=== PATIENT | male | born 1950 | race Caucasian/White ===

== ENCOUNTER 2019-12-07 10:07 | Outpatient (REF) | payer MEDICARE, SELFPAY ==
[2019-12-07 13:54] LABS: MANUAL DIFF FLAG NO
[2019-12-07 13:56] LABS: Basophils Absolute Auto 0.1 X10*3/uL (0.0-0.2); Basophils Percent Auto 0.5 % (0-2); Eosinophils Absolute Auto 0.2 X10*3/uL (0.0-0.4); Eosinophils Percent Auto 1.8 % (0-4); Hematocrit 48.2 % (42-52); Hemoglobin 15.9 g/dl (14.0-18.0); Imm Gran Abs Auto 0.02 X10*3/uL (0.00-0.03); Imm Gran Pct Auto 0.2 % (0.0-0.4); Lymphocytes Percent Auto 30.3 % (20-40); Mean Corpuscular Hemoglobin 30.5 pg (27.0-33.0); Mean Corpuscular Volume 92.3 fL (80-98); Monocytes Absolute Auto 1.1 X10*3/uL (0.1-1.2); Monocytes Percent Auto 11.4 % (2-11); Neutrophils Absolute Auto 5.5 X10*3/uL (2.0-8.3); Neutrophils Percent Auto 55.8 % (45-73); Platelet Count 290 X10*3/uL (160-400); Red Blood Count 5.22 X10*6/uL (4.60-5.80); Red Cell Distribution Width 13.8 % (11.0-16.0); White Blood Count 9.9 X10*3/uL (4.8-10.8)
[2019-12-07 14:22] LABS: C Reactive Protein 0.67 mg/dL (< or = 0.50)
[2019-12-07 14:46] LABS: Erythrocyte Sedimentation Rate 5 MM/HR (0-15)
== END 2019-12-07 10:08 | disposition home or self-care (01) ==
LOC: HO.WFDLDS 10:07
PROVIDERS: Visit Provider Physician Assistant Surgical
DX: Z13.89 Encounter for screening for other disorder (principal)
CPT/HCPCS: 36415; 85025; 85652; 86140

== ENCOUNTER 2020-03-28 07:10 | Outpatient (REF) | payer MEDICARE, SELFPAY ==
[2020-03-28 10:52] LABS: MANUAL DIFF FLAG NO
[2020-03-28 11:00] LABS: Basophils Percent Auto 0.5 % (0-2); Eosinophils Absolute Auto 0.3 X10*3/uL (0.0-0.4); Eosinophils Percent Auto 3.5 % (0-4); Hematocrit 45.3 % (42-52); Imm Gran Abs Auto 0.02 X10*3/uL (0.00-0.03); Imm Gran Pct Auto 0.2 % (0.0-0.4); Lymphocytes Absolute Auto 2.5 X10*3/uL (1.2-4.9); Lymphocytes Percent Auto 30.4 % (20-40); Mean Corpuscular HGB Conc 33.1 g/dl (31.0-36.0); Mean Corpuscular Hemoglobin 30.4 pg (27.0-33.0); Mean Corpuscular Volume 91.9 fL (80-98); Mean Platelet Volume 10.7 fL (9.4-12.4); Monocytes Absolute Auto 1.1 X10*3/uL (0.1-1.2); Neutrophils Absolute Auto 4.4 X10*3/uL (2.0-8.3); Neutrophils Percent Auto 52.4 % (45-73); Platelet Count 247 X10*3/uL (160-400); Red Blood Count 4.93 X10*6/uL (4.60-5.80); Red Cell Distribution Width 13.9 % (11.0-16.0); White Blood Count 8.3 X10*3/uL (4.8-10.8)
[2020-03-28 11:46] LABS: Alanine Aminotransferase 24 U/L (0-40); Albumin Level 4.1 g/dL (3.5-5.0); Alkaline Phosphatase 64 U/L (39-117); Anion Gap 12 (12-20); Aspartate Amino Transferase 16 U/L (5-37); Bilirubin Total 0.7 mg/dL (0.0-1.0); Blood Urea Nitrogen 14 mg/dL (9-16); Carbon Dioxide 26 mmol/L (22-29); Chloride 105 mmol/L (96-108); Cholesterol 165 mg/dL; Estimated Glomerular Filt Rate > 60; Glucose Fasting 88 mg/dL (60-99); HDL Cholesterol 36 mg/dL; LDL Cholesterol Calculated 94 mg/dl; Potassium 4.5 mmol/L (3.3-5.1); Sodium 138 mmol/L (135-145); Total Protein 7.6 g/dL (6.5-8.0); Triglycerides 178 mg/dL
[2020-03-28 12:11] LABS: Thyroid Stimulating Hormone 2.51 uIU/mL (0.32-4.0)
== END 2020-03-28 07:11 | disposition home or self-care (01) ==
LOC: HO.WFDLDS 07:10
PROVIDERS: PCP Nurse Practitioner Family; Visit Provider Nurse Practitioner Family
DX: Z00.00 Encounter for general adult medical examination without abnormal findings (principal); R53.83 Other fatigue
CPT/HCPCS: 36415; 80053; 80061; 84443; 85025

== ENCOUNTER 2020-04-10 07:43 | Outpatient (REF) | payer MEDICARE, SELFPAY ==
[2020-04-10 12:08] LABS: Thyroid Stimulating Hormone 2.26 uIU/mL (0.32-4.0)
[2020-04-10 12:43] LABS: Folate 16.9 ng/mL (> or = 4.0); Vitamin B12 311 pg/mL (200-900)
[2020-04-11 08:29] LABS: Syphilis Screen Nonreactive (Nonreactive)
== END 2020-04-10 07:44 | disposition home or self-care (01) ==
LOC: HO.WFDLDS 07:43
PROVIDERS: Visit Provider Psychiatry & Neurology Neurology
DX: R41.3 Other amnesia (principal)
CPT/HCPCS: 36415; 82607; 82746; 84443; 86780

== ENCOUNTER 2022-11-12 07:10 | Outpatient (REF) | payer MEDICARE, SELFPAY ==
[2022-11-12 11:33] LABS: Hemoglobin 14.3 g/dl (14.0-18.0); Mean Corpuscular HGB Conc 33.3 g/dl (31.0-36.0); Mean Corpuscular Hemoglobin 31.2 pg (27.0-33.0); Mean Corpuscular Volume 93.7 fL (80.0-98.0); Platelet Count 268 X10*3/uL (160-400); Red Blood Count 4.59 X10*6/uL (4.60-5.80); White Blood Count 8.2 X10*3/uL (4.8-10.8)
[2022-11-12 12:08] LABS: Alanine Aminotransferase 16 U/L (0-40); Albumin Level 4.1 g/dL (3.5-5.0); Alkaline Phosphatase 63 U/L (39-117); Anion Gap 9 (12-20); Aspartate Amino Transferase 14 U/L (5-37); Bilirubin Total 0.5 mg/dL (0.0-1.0); Blood Urea Nitrogen 17 mg/dL (9-16); Calcium 8.7 mg/dL (8.4-10.2); Carbon Dioxide 25 mmol/L (22-29); Chloride 108 mmol/L (96-108); Estimated Glomerular Filt Rate > 60; Glucose Fasting 95 mg/dL (60-99); Potassium 3.8 mmol/L (3.3-5.1); Sodium 138 mmol/L (135-145); Total Protein 7.4 g/dL (6.5-8.0)
== END 2022-11-12 07:11 | disposition home or self-care (01) ==
LOC: HO.WFDLDS 07:10
PROVIDERS: Visit Provider Nurse Practitioner Family
DX: E78.00 Pure hypercholesterolemia, unspecified (principal); Z11.59 Encounter for screening for other viral diseases
CPT/HCPCS: 36415; 80053; 85027

== ENCOUNTER 2023-05-04 08:44 | Outpatient (AMB) | payer MEDICARE, SELFPAY ==
--- NOTE | 2023-05-04 09:04 | MHC.OFFVIS ---
Intake Intake Visit Reasons: incomplete bladder emptying Intake Note: New Patient presents today for a follow up on incomplete bladder emptying Meds- Tamsulosin Allergies to Antibiotic- No Known Allergies Blood Thinner- Aspirin Post Void Residual: 55ml Patient stated he urinate about 7 times in the morning, and he believe is due to the furosemide.He also stated he used to wakes up a night about 3 times to urinate, and after he started taking the Tamsulosin, he wakes up about one time at night. 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 The patient is hearing impaired uses a hearing aid. His Deepa is present. He states that he sees a urologist in [place] when he is there for the wintertime. He has been on tamsulosin for some time. He denies gross hematuria. Denies prior UTI or kidney stones. Evaluation: Bladder scan PVR 55 mL. Prostate exam-mild to moderately enlarged smooth. 05/04/2023--plan: Continue tamsulosin 0.4 mg daily Ultrasound retroperitoneum PSA screening Follow-up in 10 weeks [facility] Medical History Ankle swelling Hx of hyperlipidemia Migraine Hearing difficulty History of osteoarthritis Fusion of fingers of both hands Urinary retention Vertigo Surgical History Hx of colonoscopy History of hip replacement History of knee replacement Family History Father History of emphysema Mother No problems noted. Social History Alcohol intake: current Alcohol intake frequency: holidays/special occasions only Patient Tobacco Use Status: Former Tobacco user Quit Date: 1991 Review of Systems Const All systems reviewed & are unremarkable except as noted in HPI and below Reports no additional complaints Eyes Reports no additional complaints ENT Reports no additional complaints Card Reports no additional complaints Resp Reports no additional complaints GI Reports no additional complaints Reports as per HPI Musc Reports no additional complaints Skin/Breast Reports system reviewed and no additional complaints, except as documented Neuro Reports no additional complaints Psych Reports no additional complaints Endo Reports no additional complaints Rohit/Lymph Reports no additional complaints Aller/Immun Reports no additional complaints Physical Exam Const General: healthy appearing, no acute distress and well developed Orientation/consciousness: patient oriented x3 HEENT Head: Yes normocephalic and Yes atraumatic Eyes Conjunctivae: conjunctivae normal Neck Neck: Yes normal visual inspection Chest Chest palpation & inspection: normal inspection of the chest Resp Effort & Inspection: normal respiratory effort Cardio Rate: regular rate GI Inspection: Yes normal to inspection Palpation (GI): Soft to palpation Other: Prostate Exam: mild to moderately enlarged smooth. Skin General skin exam: no rashes or lesions noted Neuro General: patient oriented x3 Extrem General: No pedal edema Psych Appearance: grossly normal Affect: normal affect Office Procedures Post Void Residual Post Residual Void Post Void Residual (PVR): [id number] Void Residual by ultrasound Results AMB Urinalysis, Automated UA Leukoctes 0 Kelly/uL Last Edit by Rita Johnson CMA on 05/04/23 09:34 UA Nitrite Negative Last Edit by Rita Johnson CMA on 05/04/23 09:34 UA Urobilinogen 0.2 mg/dL Last Edit by Rita Johnson CMA on 05/04/23 09:34 UA Protein 15 mg/dL Last Edit by Rita Johnson CMA on 05/04/23 09:34 UA pH 6.0 Last Edit by Rita Johnson CMA on 05/04/23 09:34 UA Blood 0 Mickey/uL Last Edit by Rita Johnson CMA on 05/04/23 09:34 UA Specific [place] 1.025 Last Edit by Rita Johnson CMA on 05/04/23 09:34 UA Ketone Negative Last Edit by Rita Johnson CMA on 05/04/23 09:34 UA Bilirubin 0 mg/dL Last Edit by Rita Johnson CMA on 05/04/23 09:34 UA Glucose 0 mg/dL Last Edit by Rita Johnson CMA on 05/04/23 09:34 Results Reviewed Results Reviewed: Laboratory Last Values Urine pH (Auto) 6.0 05/04/23 09:33 Specific [place] (Auto) 1.025 05/04/23 09:33 Urine Protein (Auto) 15 mg/dL 05/04/23 09:33 Glucose (UA)(Auto) 0 mg/dL 05/04/23 09:33 Urine Ketones (Auto) Negative 05/04/23 09:33 Urine Blood (Auto) 0 Mickey/uL 05/04/23 09:33 Urine Nitrite (Auto) Negative 05/04/23 09:33 Urine Bilirubin (Auto) 0 mg/dL 05/04/23 09:33 Urine Urobilinogen (Auto) 0.2 mg/dL 05/04/23 09:33 Leukocyte Esterase (Auto) 0 Kelly/uL 05/04/23 09:33 Assessment & Plan Assessment & Plan (1) BPH with obstruction/lower urinary tract symptoms: Code(s): N40.1 - Benign prostatic hyperplasia with lower urinary tract symptoms; N13.8 - Other obstructive and reflux uropathy (2) Nocturia: Code(s): R35.1 - Nocturia Plan Continue tamsulosin 0.4 mg daily Ultrasound retroperitoneum PSA screening Follow-up in 10 weeks Orders: Orders US retroperitoneal comp Today N13.8 - Other obstructive and reflux uropathy, N40.1 - Benign prostatic hyperplasia with lower urinary tract symptoms AMB Urinalysis Automated Today R33.9 - Retention of urine, unspecified AMB Post Void Residual by ultrasound Today R33.9 - Retention of urine, unspecified PSA,Total (Free>4and<10) 5 Weeks N13.8 - Other obstructive and reflux uropathy, N40.1 - Benign prostatic hyperplasia with lower urinary tract symptoms Patient Instructions: The patient had an opportunity to ask questions regarding treatment plan. All questions were answered. Laboratory studies and physical exam results were discussed and reviewed in detail. No major barriers to understanding were identified. The patient expressed understanding and agreement with the above treatment plan. The patient is aware they should contact our office by phone for worsening of their current condition or the appearance of new symptoms. Compliance is encouraged with any medications and followup testing that is ordered. It is a privilege to be allowed the opportunity to participate in the urologic care of your patient. If you have any questions or concerns regarding treatment for the above conditions please do not hesitate to contact me. The office telephone contact is [phone]. This note is constructed in part using voice recognition software. While every effort has been made to ensure accuracy natural gas field processing supervisor errors may have been included. Yours sincerely, Leatha Elaine MD Coding Level of Care Code New Pt Level 4 (26189) Diagnoses BPH with obstruction/lower urinary tract symptoms N40.1; N13.8 Nocturia R35.1 CPT Codes Post Residual Void - PVR CPT Code: 76477-Accv Void Residual by ultrasound ([id number])
== END 2023-05-04 10:00 | disposition home or self-care (01) ==
PROVIDERS: PCP Nurse Practitioner Family; Visit Provider Urology
DX: N40.1 Benign prostatic hyperplasia with lower urinary tract symptoms (principal); N13.8 Other obstructive and reflux uropathy; R35.1 Nocturia; R33.9 Retention of urine, unspecified
CPT/HCPCS: 99204

== ENCOUNTER → 2023-05-04 08:44 | Outpatient (BNVA) | payer MEDICARE, SELFPAY | PROVIDERS: PCP Nurse Practitioner Family; Visit Provider Urology | DX: N40.1 Benign prostatic hyperplasia with lower urinary tract symptoms (principal); N13.8 Other obstructive and reflux uropathy; R35.1 Nocturia | CPT/HCPCS: 51798; 81003; 99202 ==

== ENCOUNTER 2023-07-09 10:16 | Outpatient (REF) | payer MEDICARE, SELFPAY ==
--- NOTE | ~2023-07-09 | US_ITS ---
EXAMINATION: US RETROPERITONEAL COMPLETE (RENAL) CLINICAL INFORMATION: Benign prostatic hyperplasia with lower urinary tract symptoms. COMPARISON: None available. TECHNIQUE: Real-time imaging of the kidneys and bladder. FINDINGS: RIGHT KIDNEY: 11.4 x 5.4 x 6.4 cm (SAG x AP x TRV). The kidney is normal in size, contour, and echogenicity. Renal cortical thickness is normal. No calculi or focal parenchymal lesions. No hydronephrosis. LEFT KIDNEY: 12.9 x 5.8 x 5.8 cm (SAG x AP x TRV). The kidney is normal in size, contour, and echogenicity. Renal cortical thickness is normal. No calculi or focal parenchymal lesions. No hydronephrosis. BLADDER: Well distended. Bilateral ureteral jets are demonstrated. Prevoid bladder volume is 195 mL. Postvoid bladder volume is 62 mL. ADDITIONAL FINDINGS: The prostate is enlarged measuring 38 mL. US/US retroperitoneal comp IMPRESSION: Enlarged prostate. Post void bladder residual 62 mL. No hydronephrosis.
[2023-07-09 12:31] LABS: PSA,Total (Free>4and<10) 4.94 ng/mL (0.00-4.00)
[2023-07-11 11:28] LABS: Free Prostate Spec Ag 0.5 ng/mL; Percent Free Prostate Spec Ag 11 % (calc) (>25); Prostate Specific Ag Total 4.4 ng/mL (< OR = 4.0)
== END 2023-07-09 10:17 | disposition home or self-care (01) ==
LOC: HO.US 10:16
PROVIDERS: PCP Internal Medicine; Visit Provider Urology
DX: Z12.5 Encounter for screening for malignant neoplasm of prostate (principal); N40.1 Benign prostatic hyperplasia with lower urinary tract symptoms; N13.8 Other obstructive and reflux uropathy
CPT/HCPCS: 36415; 76770; 84153; 84154

== ENCOUNTER 2023-07-13 10:44 | Outpatient (AMB) | payer MEDICARE, SELFPAY ==
--- NOTE | 2023-07-13 10:50 | A.OFFVIS_ITS ---
Intake Visit Reasons: 2m/US/PSA Intake Note: Patient presents today for a follow up on US & PSA Results: Meds- Tamsulosin Allergies to Antibiotic- No Known Allergies Blood Thinner- Aspirin Commercial Production Editor Required: No Accompanied by: Allergies No Known Allergies Allergy (Mild, Verified 07/13/23 10:55) N/A Medication List - Last Reconciled 07/13/23 by Leatha Elaine MD amoxicillin 500 mg PO TID aspirin 81 mg PO DAILY finasteride (Proscar) 5 mg PO DAILY 90 days furosemide 20 mg PO DAILY gemfibrozil 600 mg PO BID tamsulosin 0.4 mg PO DAILY topiramate 50 mg PO BID topiramate XR mg PO HPI Comments Details: 07/13/23--Arnold is a 73-year-old male who is hearing impaired. He is followed for BPH. He is on tamsulosin 0.4 mg daily. He is here in follow-up post renal and bladder ultrasound and PSA testing. I reviewed PSA testing obtained on 07/09/2023--PSA--4.94 ng/mL. Renal ultrasound preliminary results reviewed with patient: Official design engineer pending. Bilateral kidneys unremarkable, prostate volume estimated 38 mL. Bladder prevoid 195 mL, postvoid 62 mL. Continue tamsulosin. Discussed trial of Proscar 5 mg daily. Repeat PSA in 4 months. Revew of chart: 05/04/23--Arnold is a 73-year-old male who is here due to history of BPH. The patient is hearing impaired uses a hearing aid. His Deepa is present. He states that he sees a urologist in [place] when he is there for the wintertime. He has been on tamsulosin for some time. He denies gross hematuria. Denies prior UTI or kidney stones. Evaluation: Bladder scan PVR 55 mL. Prostate exam-mild to moderately enlarged smooth. Continue tamsulosin 0.4 mg daily Ultrasound retroperitoneum. PSA screening. Follow-up in 10 weeks [facility] Medical History Ankle swelling Hx of hyperlipidemia Migraine Hearing difficulty History of osteoarthritis Fusion of fingers of both hands Urinary retention Vertigo Surgical History Hx of colonoscopy History of hip replacement History of knee replacement Family History Father History of emphysema Mother No problems noted. Social History Alcohol intake: current Alcohol intake frequency: holidays/special occasions only Patient Tobacco Use Status: Former Tobacco user Review of Systems Const All systems reviewed & are unremarkable except as noted in HPI and below Reports no additional complaints Eyes Reports no additional complaints ENT Reports no additional complaints Card Reports no additional complaints Resp Reports no additional complaints GI Reports no additional complaints Reports as per HPI Musc Reports no additional complaints Skin/Breast Reports system reviewed and no additional complaints, except as documented Neuro Reports no additional complaints Psych Reports no additional complaints Endo Reports no additional complaints Rohit/Lymph Reports no additional complaints Aller/Immun Reports no additional complaints Results AMB Urinalysis, Automated UA Leukoctes 0 Kelly/uL Last Edit by KATHLEEN Harrison on 07/13/23 11:05 UA Nitrite Negative Last Edit by KATHLEEN Harrison on 07/13/23 11:05 UA Urobilinogen 0.2 mg/dL Last Edit by KATHLEEN Harrison on 07/13/23 11:0 5 UA Protein 0 mg/dL Last Edit by KATHLEEN Harrison on 07/13/23 11:05 UA pH 6.0 Last Edit by KATHLEEN Harrison on 07/13/23 11:05 UA Blood 0 Mickey/uL Last Edit by KATHLEEN Harrison on 07/13/23 11:05 UA Specific [place] 1.020 Last Edit by KATHLEEN Harrison on 07/13/23 11: 05 UA Ketone Negative Last Edit by KATHLEEN Harrison on 07/13/23 11:05 UA Bilirubin 0 mg/dL Last Edit by KATHLEEN Harrison on 07/13/23 11:05 UA Glucose 0 mg/dL Last Edit by KATHLEEN Harrison on 07/13/23 11:05 Results Reviewed Results Reviewed: Laboratory Last Values Urine pH (Auto) 6.0 07/13/23 11:01 Specific [place] (Auto) 1.020 07/13/23 11:01 Urine Protein (Auto) 0 mg/dL 07/13/23 11:01 Glucose (UA)(Auto) 0 mg/dL 07/13/23 11:01 Urine Ketones (Auto) Negative 07/13/23 11:01 Urine Blood (Auto) 0 Mickey/uL 07/13/23 11:01 Urine Nitrite (Auto) Negative 07/13/23 11:01 Urine Bilirubin (Auto) 0 mg/dL 07/13/23 11:01 Urine Urobilinogen (Auto) 0.2 mg/dL 07/13/23 11:01 Leukocyte Esterase (Auto) 0 Kelly/uL 07/13/23 11:01 Ultrasound retroperitoneum-07/09/2023--Renal ultrasound preliminary results reviewed with patient: Official design engineer pending. Bilateral kidneys unremarkable, prostate volume estimated 38 mL. Bladder prevoid 195 mL, postvoid 62 mL Assessment & Plan Assessment & Plan (1) BPH with obstruction/lower urinary tract symptoms: Code(s): N40.1 - Benign prostatic hyperplasia with lower urinary tract symptoms; N13.8 - Other obstructive and reflux uropathy Category: Medical (2) Nocturia: Code(s): R35.1 - Nocturia Category: Medical (3) BPH with elevated PSA: Code(s): N40.0 - Benign prostatic hyperplasia without lower urinary tract symptoms; R97.20 - Elevated prostate specific antigen [PSA] Category: Medical Plan Continue tamsulosin. Discussed trial of Proscar 5 mg daily. Repeat PSA in 4 months. Orders: Orders AMB Urinalysis Automated Today Z13.9 - Encounter for screening, unspecified PSA,Total (Free>4and<10) 4 Months N40.0 - Benign prostatic hyperplasia without lower urinary tract symptoms, R97.20 - Elevated prostate specific antigen [PSA] Medications: New finasteride (Proscar) 5 mg PO DAILY 90 days 90 tabs 3RF Patient Instructions: The patient had an opportunity to ask questions regarding treatment plan. The patient expressed understanding and agreement with the above treatment plan. The patient is aware they should contact our office by phone for worsening of their current condition or the appearance of new symptoms. Compliance is encouraged with any medications and followup testing that is ordered. It is a privilege to be allowed the opportunity to participate in the urologic care of your patient. If you have any questions or concerns regarding treatment for the above conditions please do not hesitate to contact me. The office telephone contact is [phone]. This note is constructed in part using voice recognition software. While every effort has been made to ensure accuracy design engineer errors may have been included. Yours sincerely, Leatha Elaine MD Coding Level of Care Code Est Pt Level 4 (47787) Diagnoses BPH with obstruction/lower urinary tract symptoms N40.1; N13.8 Nocturia R35.1 BPH with elevated PSA N40.0; R97.20
== END 2023-07-13 11:24 | disposition home or self-care (01) ==
PROVIDERS: PCP Nurse Practitioner Family; Visit Provider Urology
DX: N40.1 Benign prostatic hyperplasia with lower urinary tract symptoms (principal); N13.8 Other obstructive and reflux uropathy; R35.1 Nocturia; N40.0 Benign prostatic hyperplasia without lower urinary tract symptoms; R97.20 Elevated prostate specific antigen [PSA]; Z13.9 Encounter for screening, unspecified
CPT/HCPCS: 99214

== ENCOUNTER → 2023-07-13 10:44 | Outpatient (BNVA) | payer MEDICARE, SELFPAY | PROVIDERS: PCP Nurse Practitioner Family; Visit Provider Urology | DX: N40.1 Benign prostatic hyperplasia with lower urinary tract symptoms (principal); N13.8 Other obstructive and reflux uropathy; R35.1 Nocturia; R97.20 Elevated prostate specific antigen [PSA]; Z79.82 Long term (current) use of aspirin; Z79.899 Other long term (current) drug therapy | CPT/HCPCS: 81003; 99212 ==

== ENCOUNTER 2023-11-25 08:01 | Outpatient (REF) | payer MEDICARE, SELFPAY ==
[2023-11-25 12:25] LABS: PSA,Total (Free>4and<10) 2.56 ng/mL (0.00-4.00)
== END 2023-11-25 08:02 | disposition home or self-care (01) ==
LOC: HO.WFDLDS 08:01
PROVIDERS: Visit Provider Urology
DX: N40.0 Benign prostatic hyperplasia without lower urinary tract symptoms (principal); R97.20 Elevated prostate specific antigen [PSA]; Z12.5 Encounter for screening for malignant neoplasm of prostate
CPT/HCPCS: 36415; 84153

== ENCOUNTER 2023-12-17 07:57 | Outpatient (AMB) | payer MEDICARE, SELFPAY ==
--- NOTE | 2023-12-16 18:40 | A.OFFVIS_ITS ---
Intake Visit Reasons: 5m/PSA Intake Note: Patient is present for 5mPSA Urology Medication:FINASTERIDE,TAMSULOSIN,FUROSEMIDE Antibiotic Allergy:NONE Blood Thinner:ASPIRIN Underground Truck Operator Required: No Allergies No Known Allergies Allergy (Mild, Verified 12/17/23 08:27) N/A Medication List - Last Reconciled 12/17/23 by Leatha Elaine MD aspirin 81 mg PO DAILY finasteride (Proscar) 5 mg PO DAILY 90 days furosemide 20 mg PO DAILY gemfibrozil 600 mg PO BID tamsulosin 0.4 mg PO DAILY topiramate XR mg PO HPI Comments Details: 12/17/23-- Arnold is a 73-year-old gentleman who is followed for BPH and elevated PSA. Follow-up today. The patient is prescribed Proscar and tamsulosin. FU PSA----11/25/23--2.56 Urinalysis is unremarkable blood negative leukocytes negative. Gilmer states he is getting up less at night and has a stronger urinary flow. Plan continue Proscar and tamsulosin, follow-up in 1 year PSA prior. Revew of chart: 07/13/23--Arnold is a 73-year-old male who is hearing impaired. He is followed for BPH. He is on tamsulosin 0.4 mg daily. He is here in follow-up post renal and bladder ultrasound and PSA testing. I reviewed PSA testing obtained on 07/09/2023--PSA--4.94 ng/mL. 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 Bilateral kidneys unremarkable, prostate volume estimated 38 mL. Bladder prevoid 195 mL, postvoid 62 mL. Continue tamsulosin. Discussed trial of Proscar 5 mg daily. Repeat PSA in 4 months. 05/04/23--Arnold is a 73-year-old male who is here due to history of BPH. The patient is hearing impaired uses a hearing aid. His Deepa is present. He states that he sees a urologist in [place] when he is there for the wintertime. He has been on tamsulosin for some time. He denies gross hematuria. Denies prior UTI or kidney stones. Evaluation: Bladder scan PVR 55 mL. Prostate exam-mild to moderately enlarged smooth. Continue tamsulosin 0.4 mg daily Ultrasound retroperitoneum. PSA screening. Follow-up in 10 weeks [facility] Medical History Ankle swelling Hx of hyperlipidemia Migraine Hearing difficulty History of osteoarthritis Fusion of fingers of both hands Urinary retention Vertigo Surgical History Hx of colonoscopy History of hip replacement History of knee replacement Family History Father History of emphysema Mother No problems noted. Social History Alcohol intake: current Alcohol intake frequency: holidays/special occasions only Patient Tobacco Use Status: Former Tobacco user Review of Systems Const All systems reviewed & are unremarkable except as noted in HPI and below Reports no additional complaints Eyes Reports no additional complaints ENT Reports no additional complaints Card Reports no additional complaints Resp Reports no additional complaints GI Reports no additional complaints Reports as per HPI Musc Reports no additional complaints Skin/Breast Reports system reviewed and no additional complaints, except as documented Neuro Reports no additional complaints Psych Reports no additional complaints Endo Reports no additional complaints Rohit/Lymph Reports no additional complaints Aller/Immun Reports no additional complaints Results AMB Urinalysis, Automated UA Leukoctes 0 Kelly/uL Last Edit by MARIBEL Lawrence on 12/17/23 08:50 UA Nitrite Negative Last Edit by MARIBEL Lawrence on 12/17/23 08:50 UA Urobilinogen 0.2 mg/dL Last Edit by MARIBEL Lawrence on 12/17/23 08:5 0 UA Protein 15 mg/dL Last Edit by Jesika Sanders CCM on 12/17/23 08:50 UA pH 6.0 Last Edit by MARIBEL Lawrence on 12/17/23 08:50 UA Blood 0 Mickey/uL Last Edit by MARIBEL Lawrence on 12/17/23 08:50 UA Specific [place] 1.020 Last Edit by MARIBEL Lawrence on 12/17/23 08: 50 UA Ketone Negative Last Edit by Jesika Sanders CCM on 12/17/23 08:50 UA Bilirubin 0 mg/dL Last Edit by MARIBEL Lawrence on 12/17/23 08:50 UA Glucose 0 mg/dL Last Edit by MARIBEL Lawrence on 12/17/23 08:50 Results Reviewed Results Reviewed: Ultrasound retroperitoneum-07/09/2023-- Renal ultrasound --Bilateral kidneys unremarkable, prostate volume estimated 38 mL. Bladder prevoid 195 mL, postvoid 62 mL Date of Service: 07/09/23 US RETROPERITONEAL COMPLETE (RENAL) CLINICAL INFORMATION: Benign prostatic hyperplasia with lower urinary tract symptoms. COMPARISON: None available. TECHNIQUE: Real-time imaging of the kidneys and bladder. FINDINGS: RIGHT KIDNEY: 11.4 x 5.4 x 6.4 cm (SAG x AP x TRV). The kidney is normal in size, contour, and echogenicity. Renal cortical thickness is normal. No calculi or focal parenchymal lesions. No hydronephrosis. LEFT KIDNEY: 12.9 x 5.8 x 5.8 cm (SAG x AP x TRV). The kidney is normal in size, contour, and echogenicity. Renal cortical thickness is normal. No calculi or focal parenchymal lesions. No hydronephrosis. BLADDER: Well distended. Bilateral ureteral jets are demonstrated. Prevoid bladder volume is 195 mL. Postvoid bladder volume is 62 mL. ADDITIONAL FINDINGS: The prostate is enlarged measuring 38 mL. IMPRESSION: Enlarged prostate. Post void bladder residual 62 mL. No hydronephrosis. Assessment & Plan Assessment & Plan (1) BPH with obstruction/lower urinary tract symptoms: Code(s): N40.1 - Benign prostatic hyperplasia with lower urinary tract symptoms; N13.8 - Other obstructive and reflux uropathy Category: Medical (2) Nocturia: Code(s): R35.1 - Nocturia Category: Medical (3) BPH with elevated PSA: Code(s): N40.0 - Benign prostatic hyperplasia without lower urinary tract symptoms; R97.20 - Elevated prostate specific antigen [PSA] Category: Medical Plan FU PSA----11/25/23--2.56 Urinalysis is unremarkable blood negative leukocytes negative. Scherer states he is getting up less at night and has a stronger urinary flow. Plan continue Proscar and tamsulosin, follow-up in 1 year PSA prior. Orders: Orders PSA,Total (Free>4and<10) 10 Months N40.0 - Benign prostatic hyperplasia without lower urinary tract symptoms, R97.20 - Elevated prostate specific antigen [PSA] AMB Urinalysis Automated Today Z13.9 - Encounter for screening, unspecified Medications: New tamsulosin 0.4 mg PO DAILY 90 caps 3RF Refilled finasteride (Proscar) 5 mg PO DAILY 90 days 90 tabs 3RF Patient Instructions: The patient had an opportunity to ask questions regarding treatment plan. The patient expressed understanding and agreement with the above treatment plan. The patient is aware they should contact our office by phone for worsening of their current condition or the appearance of new symptoms. Compliance is enco uraged with any medications and followup testing that is ordered. It is a privilege to be allowed the opportunity to participate in the urologic care of your patient. If you have any questions or concerns regarding treatment for the above conditions please do not hesitate to contact me. The office telephone contact is [phone]. This note is constructed in part using voice recognition software. While every effort has been made to ensure accuracy automotive diagnostic technician errors may have been included. Yours sincerely, Letaha Elaine MD Coding Level of Care Code Est Pt Level 4 (22784) Diagnoses BPH with obstruction/lower urinary tract symptoms N40.1; N13.8 Nocturia R35.1 BPH with elevated PSA N40.0; R97.20
== END 2023-12-17 08:55 | disposition home or self-care (01) ==
LOC: HO.HUSH 07:58
PROVIDERS: PCP Nurse Practitioner Family; Visit Provider Urology
DX: N40.1 Benign prostatic hyperplasia with lower urinary tract symptoms (principal); N13.8 Other obstructive and reflux uropathy; R35.1 Nocturia; N40.0 Benign prostatic hyperplasia without lower urinary tract symptoms; R97.20 Elevated prostate specific antigen [PSA]; Z13.9 Encounter for screening, unspecified
CPT/HCPCS: 99214

== ENCOUNTER → 2023-12-17 07:57 | Outpatient (BNVA) | payer MEDICARE, SELFPAY | PROVIDERS: PCP Nurse Practitioner Family; Visit Provider Urology | DX: N40.1 Benign prostatic hyperplasia with lower urinary tract symptoms (principal); N13.8 Other obstructive and reflux uropathy; R97.20 Elevated prostate specific antigen [PSA]; R35.1 Nocturia | CPT/HCPCS: 81003; 99212 ==

== ENCOUNTER 2024-12-06 10:26 | Outpatient (REF) | payer MEDICARE, SELFPAY ==
--- OUTSIDE RECORDS SUMMARY | 2024-12-06 12:54 | XMS_ITS | Patient Health Record ---
Author Organization [facility] Address [address] [place] [address] Care Team Providers Care Circuit Manager Name Role Phone KALEIGH HOWARD APRN Primary Care Provider Ivy MARCIAL Russell Unavailable [phone] Allergies No Known Allergies Reason For Referral No Information Medications Medication SIG (Take, Route, Frequency, Duration) Notes Start Date End Date Status Aspirin 81 MG Tablet Chewable 1 tablet Orally Once a day; Duration: 30 day(s) Active Tamsulosin HCl 0.4 MG Capsule Extended Release as directed Orally Active Topiramate 50 MG Tablet 1 tablet Orally Once a day; Duration: 30 day(s) Active Gemfibrozil 600 MG Tablet 1 tablet 30 mi nutes before morning and evening meals Orally Twice a day; Duration: 30 day(s) Active Vitamin D2 10 MCG (400 UNIT) Tablet 2 tablets Orally Once a day; Duration: 30 day(s) Active Social History Tobacco Use: Social History Observation Description Date Details (start date - stop date) Never Smoker NA - NA Social History Social History Social Info Question Answer Notes Alcohol Screening: Did you have a drink containing alcohol in the past year? Yes How often did you have a drink containing alcohol in the past year? Two to three times per week (3 points) How many drinks did you have on a typical day when you were drinking in the past year? 1 or 2 (0 points) How often did you have six or more drinks on one occasion in the past year? Never (0 points) Points 3 Interpretation Negative Drug/Alcohol: Social Info Question Answer Notes Alcohol moderate alcohol usage Tobacco Use: Social Info Question Answer Notes Smoking Are you a: never smoker Problems Problem Type SNOMED Code ICD Code Onset Dates Problem Status W/U Status Risk Notes Problem Sensorineural hearing loss of bilateral ears (disorder) (932696983) Sensorineural hearing loss, bilateral (H90.3) Active confirmed Problem Dizziness and giddiness (985174251) Dizziness and giddiness (R42) Active confirmed Problem Vertigo of central origin (98020533) Vertigo of central origin (H81.4) Active confirmed Plan Of Treatment No Information Insurance Providers Payer Name Payer Address Payer Phone Subscriber Number Group Number Insured Name Patient Relationship to Insured Coverage Start Date Coverage End Date MEDICARE [place] PART [place] [address] [place] [phone] [id number] ROBINA VILLALBA Self - patient is the insured [place] [address] [place] [address] [id number] ROBINA VILLALBA Self - patient is the insured Medical (General) History Medical History History ICD Code none Surgical History Surgery Date(Month/Year) back surgery hip surgery knee replacement shoulder surgery hand surgery
--- OUTSIDE RECORDS SUMMARY | 2024-12-06 12:54 | XMS_ITS | Patient Health Record ---
Author Organization [facility] Address [address] [facility] [address] [place] [address] Care Team Providers Care Airset Molder Name Role Phone Batool Martin Primary Care Provider [phone] Allergies No Known Allergies Reason For Referral No Information Medications Medication SIG (Take, Route, Frequency, Duration) Notes Start Date End Date Status Vitamin D (Ergocalciferol) 1.25 MG (67821 UT) 1 capsule Orally once weekly; Duration: 90 days Active Meclizine HCl 25 MG 1 tablet as needed Orally bid prn; Duration: 90 days Active Gemfibrozil 600 MG 1 tablet 30 minutes before morning and evening meals Orally Twice a day; Duration: 90 days Active Aspirin Adult Low Dose 81 MG 1 tablet Orally Once a day Active Tamsulosin HCl 0.4 MG 1 capsule Orally Once a day; Duration: 90 days *Pick strength-form from [employer] for eRX* Active Topiramate 50 MG 1 tablet Orally Twice a day Active Problems Problem Type SNOMED Code ICD Code Onset Dates Problem Status W/U Status Risk Notes Problem Vitamin D deficiency (03609465) Vitamin D deficiency (E55.9) Active confirmed Problem Chronic fatigue syndrome (00360640) Chronic fatigue (R53.82) Active confirmed Problem Former smoker (9976351) Former smoker (Z87.891) Active confirmed Problem Urinary tract infectious disease (86460517) UTI (urinary tract infection) (N39.0) Active confirmed Problem Enlarged prostate (968555403) Enlarged prostate (N40.0) Active confirmed Problem Mixed hyperlipidemia (055571266) Elevated cholesterol with high triglycerides (E78.2) Active confirmed Problem 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) Active confirmed Problem Right-sided vestibular weakness (H81.8X1) Active confirmed Plan Of Treatment No Information Insurance Providers Payer Name Payer Address Payer Phone Subscriber Number Group Number Insured Name Patient Relationship to Insured Coverage Start Date Coverage End Date MEDICARE [address] [place] [phone] [id number] Arnold Villalba Self - patient is the insured 5 Medical (General) History Medical History History ICD Code Vitamin D deficiency E55.9 Enlarged prostate N40.0 Elevated HDL E78.89 Surgical History Surgery Date(Month/Year) 6 back surgeries [id number] hand fusion right side 02-09-2018 Right total knee & hip replacement Torn rotator cuff right 2008 and left gallbladder 02-09-1991 Groin / Abd hernia repair 02-09-2001 Hospitalization History Reason Date(Month/Year) please see above
--- OUTSIDE RECORDS SUMMARY | 2024-12-06 12:54 | XMS_ITS | Patient Health Record ---
Author Organization [facility] Address [address] [place] [address] Care Team Providers Care Fence Rider Name Role Phone Jeanette Shetty Primary Care Provider Arnold Cardozo Unavailable [phone] Reason For Referral No Information Plan Of Treatment No Information Insurance Providers Payer Name Payer Address Payer Phone Subscriber Number Group Number Insured Name Patient Relationship to Insured Coverage Start Date Coverage End Date [facility] [address] [facility] [phone] [id number] ARNOLD VILLALBA Self - patient is the insured
--- OUTSIDE RECORDS SUMMARY | 2024-12-06 12:54 | XMS_ITS | Clinical Summary ---
Author Organization [address] Address [address] [place] [phone] Phone Care Team Providers Care Fund Director Name Role Phone RoroJorge solis DO Primary Care Provider Encounters Date Type Department Care Team Description 11/08/2024 1:12 PM EDT - 11/08/2024 11:59 PM EDT Hospital Encounter [facility] MRI [address] [place] [id number] Migraine, unspecified, not intractable, without status migrainosus Discharge Disposition: Home or Self Care from Last 3 Months Surgical History Surgery Date Site/Laterality Comments BACK SURGERY PROCEDURE:BACK SURGERY;COMMENT:x6 ROTATOR CUFF REPAIR Right PROCEDURE:ROTATOR CUFF REPAIR HAND FUSION Right PROCEDURE:HAND FUSION CARPAL TUNNEL RELEASE Right PROCEDURE:CARPAL TUNNEL RELEASE GALLBLADDER SURGERY PROCEDURE:GALLBLADDER SURGERY HERNIA REPAIR PROCEDURE:HERNIA REPAIR BACK SURGERY PROCEDURE:BACK SURGERY;COMMENT:x6 Medical History Medical History Date Comments Excessive urination at night DX: Excessive urination at night History of right hip replacement DX:History of right hip replacement Vitamin D deficiency DX:Vitamin D deficiency;COMMENT:09/2018 Family History Medical History Relation Name Comments COPD Father Relation Name Status Comments Brother Alive Daughter Alive Father Maternal Grandfather Maternal Grandmother Mother Paternal Grandfather Paternal Grandmother Sister 1 Alive Sister 2 Alive Sister 3 Alive Social History Tobacco Use Types Packs/Day Years Used Date Smoking Tobacco: Former Smokeless Tobacco: Never Alcohol Use Standard Drinks/Week Comments No 0 (1 standard drink = 0.6 oz pur e alcohol) Sex and Gender Information Value Date Recorded Sex Assigned at Not on file Legal Sex Male 1:41 PM EST Gender Identity Not on file Sexual Orientation Not on file Obstetrics History Last Filed Vital Signs Vital Sign Reading Time Taken Comments Blood Pressure 124/76 11/17/2022 9:08 AM EDT Sitting Left arm Pulse 79 09/08/2022 10:05 AM EDT Temperature - - Respiratory Rate - - Oxygen Saturation - - Inhaled Oxygen Concentration - - Weight 89.8 kg (198 lb) 11/17/2022 9:08 AM EDT Height 177.8 cm (5' 10 ) 11/17/2022 9:0 8 AM EDT Body Mass Index 28.41 11/17/2022 9:08 AM EDT Plan of Treatment Health Maintenance Due Date Last Done Comments Colorectal Cancer Screening: Colonoscopy 1950 DTaP,Tdap,and Td Vaccines (1 - Tdap) 02/13/1968 Zoster Vaccines (1 of 2) 1999 Abdominal Aortic Aneurysm (AAA) Screen 01/07/2022 Falls Risk Assessment 01/07/2022 Hepatitis C Screening 01/07/2022 Medicare Annual Wellness Visit 01/07/2022 Social Influencers of Health Screening 01/07/2022 Depression Screening 02/10/2024 RSV Immunization Adult Patients (1 - 1-dose 75+ series) 02/13/2024 COVID-19 Vaccine ( - 2023-2 5 season) 2024 Influenza Vaccine (#1) 2024 11/17/2022 Cholesterol Screening (Lipid Panel) 10/19/2029 10/19/2024, 05/05/2024 Pneumococcal Vaccine: 50+ Years Completed 11/17/2022, 11/02/2018 HIB Vaccines Aged Out No longer eligi ble based on patient's age to complete this topic HPV Vaccines Aged Out No longer eligi ble based on patient's age to complete this topic Hepatitis A Vaccines Aged Out No long er eligible based on patient's age to complete this topic Hepatitis B Vaccines Aged Out No long er eligible based on patient's age to complete this topic IPV Vaccines Aged Out No longer eligi ble based on patient's age to complete this topic MMR Vaccines Aged Out No longer eligi ble based on patient's age to complete this topic Meningococcal ACWY Vaccine Aged Out N o longer eligible based on patient's age to complete this topic Meningococcal B Vaccine Aged Out No l onger eligible based on patient's age to complete this topic RSV Immunization Patients Under 20 months Aged Out No longer eligible b ased on patient's age to complete this topic Varicella Vaccines Aged Out No longer eligible based on patient's age to complete this topic Procedures Procedure Name Priority Date/Time Associated Diagnosis Comments MR BRAIN WO AND W CONTRAST Routine 11/08/2024 4:09 PM EDT Migraine, unspecified, not intractable, without status migrainosus CBC WITH AUTO DIFFERENTIAL Routine 10/19/2024 7:53 AM EDT Routine general medical examination at a health care facility Hyperlipemia Benign enlargement of prostate HEMOGLOBIN A1C Routine 10/19/2024 7:53 AM EDT Routine general medical examination at a health care facility Hyperlipemia Benign enlargement of prostate Abnormal finding of blood chemistry, unspecified PROSTATE SPECIFIC ANTIGEN SCREEN Routine 10/19/2024 7:53 AM EDT Routine general medical examination at a [facility] facility Hyperlipemia Benign enlargement of prostate Encounter for screening for malignant neoplasm of prostate THYROID STIMULATING HORMONE Routine 10/19/2024 7:53 AM EDT Routine general medical examination at a [facility] care facility Hyperlipemia Benign enlargement of prostate CBC AND DIFFERENTIAL Routine 10/19/2024 7:53 AM EDT Routine general medical examination at a health care facility Hyperlipemia Benign enlargement of prostate BASIC METABOLIC PANEL Routine 10/19/2024 7:53 AM EDT Routine general medical examination at a [facility] care facility Hyperlipemia Benign enlargement of prostate CREATINE KINASE Routine 10/19/2024 7:53 AM EDT Routine general medical examination at a health care facility Hyperlipemia Benign enlargement of prostate ASPARTATE AMINOTRANSFERASE Routine 10/19/2024 7:53 AM EDT Routine general medical examination at a health care facility Hyperlipemia Benign enlargement of prostate ALANINE AMINOTRANSFERASE Routine 025 7:53 AM EDT Routine general medical examination at a health care facility Hyperlipemia Benign enlargement of prostate LIPID PANEL WITH REFLEX TO DIRECT LDL Routine 10/19/2024 7:53 AM EDT Routine general medical examination at a [facility] facility Hyperlipemia Benign enlargement of prostate from Last 3 Months Results * MR Brain wo and w Contrast (11/08/2024 4:09 PM EDT) Anatomical Region Laterality Modality Head and Neck Magnetic Resonan ce 11/10/2024 8:17 PM EDT Impressions 11/10/2024 8:43 PM EDT Normal brain MRI without and with contrast. -------- FINAL REPORT -------- Dictated By: SHARONDA BECK Dictated Date: 11/10/2024 20:17 ET Assigned Physician: SHARONDA BECK Reviewed and Electronically Signed By: SHARONDA BECK Signed Date: 11/10/2024 20:43 ET Workstation ID: [id number] Transcribed By: Self Edit Transcribed Date: 11/10/2024 20:17 ET Narrative 11/10/2024 8:43 PM EDT PROCEDURE: Brain MRI INDICATION: Pain, vertigo, dizziness TECHNIQUE: Multiplanar, multisequence MRI of the brain without and with contrast. 15 mL Dotarem injected intravenously without complication. COMPARISON: 07/01/2018 FINDINGS: No acute infarct, mass effect, or intracranial hemorrhage. Brain parenchyma is normal in signal. No abnormal intracranial susceptibility artifact or enhancement. Sella and foramen magnum are normal. Major intracranial arterial flow voids are normal. Ventricles, sulci, and cisterns are normal in size and configuration. No hydrocephalus. Sinuses and mastoid air cells are clear. Bilateral lens implants. Orbits and extra cranial soft tissues are otherwise within normal limits. Calvarium is normal. Procedure Note Sharonda Beck MD - 11/10/2024 PROCEDURE: Brain MRI INDICATION: Pain, vertigo, dizziness TECHNIQUE: Multiplanar, multisequence MRI of the brain without and withcontrast. 15 mL Dotarem injected intravenously without complication. COMPARISON: 07/01/2018 FINDINGS: No acute infarct, mass effect, or intracranial hemorrhage. Brain parenchyma is normal in signal. No abnormal intracranialsusceptibility artifact or enhancement. Sella and foramen magnum are normal. Major intracranial arterial flow voids are normal. Ventricles, sulci, and cisterns are normal in size and configuration. Nohydrocephalus. Sinuses and mastoid air cells are clear. Bilateral lens implants. Orbits and extra cranial soft tissues areotherwise within normal limits. Calvarium is normal. IMPRESSION: Normal brain MRI without and with contrast. -------- FINAL REPORT -------- Dictated By: SHARONDA BECK Dictated Date: 11/10/2024 20:17 ET Assigned Physician: SHARONDA BECK Reviewed and Electronically Signed By: SHARONDA BECK Signed Date: 11/10/2024 20:43 ET Workstation ID: [id number] Transcribed By: Self Edit Transcribed Date: 11/10/2024 20:17 ET Jorge Garrison DO IMG MRI PROCEDURES Final Resu lt * Prostate specific antigen screen (10/19/2024 7:53 AM EDT) PSA 2.02 0.00 - 4.00 ng/mL LAB CHEMISTRY METHOD 10/19/2024 1:33 PM EDT [facility] Blood Venous blood specimen / Unknown Venipuncture / Unknown 10/19/2024 7:53 AM EDT 10/19/2024 7:53 AM EDT Narrative [facility] - 10/19/2024 1:33 PM EDT The Siemens Advia Centaur Chemiluminescent Immunoassay is used. Results obtained with different assay methods or kits cannot be used interchangeably. Results cannot be interpreted as absolute evidence of the presence or absence of malignant disease. us Lema Frias [employer] LAB BLOOD ORDERABLES Final Resul t [facility] [address] [place] [address], * Lipid panel with reflex to direct LDL (10/19/2024 7:53 AM EDT) Cholesterol 135 0 - 200 mg/dL LAB CHEMISTRY METHOD 10/19/2024 11:53 AM EDT [facility] Triglycerides 58 0 - 150 mg/dL LAB CHEMISTRY METHOD 10/19/2024 11:53 AM EDT [facility] HDL 50 >=40 mg/dL LAB CHEMISTRY METHOD 10/19/2024 11:53 AM [facility] LDL Calculated 73 0 - 100 mg/dL LAB CHEMISTRY METHOD 10/19/2024 11:53 AM EDT [facility] Comment:Estimated LDL Calcul ated using equation: Total cholesterol - HDL cholesterol - (Triglycerides/5) VLDL Cholesterol Cash 11.6 mg/dL LAB CHEMISTRY METHOD 10/19/2024 11:53 AM EDT [facility] Non HDL Chol. (LDL+VLDL) 85 <145 mg/dL LAB CHEMISTRY METHOD 10/19/2024 11:53 AM EDT [facility] Chol/HDL Ratio 2.7 0.0 - 4.4 LAB CHEMISTRY METHOD 10/19/2024 11:53 AM EDT [facility] Blood Venous blood specimen / Unknown Venipuncture / Unknown 10/19/2024 7:53 AM EDT 10/19/2024 7:53 AM EDT us Lema Frias [employer] LAB BLOOD ORDERABLES Final Resul t [facility] [address] [place] [address], * (ABNORMAL) CBC auto differential (10/19/2024 7:53 AM EDT) WBC 7.0 4.8 - 10.8 K/mcL LAB HEMETOLOGY METHOD 10/19/2024 11:11 AM EDT [facility] RBC 4.80 4.50 - 5.50 M/mcL LAB HEMETOLOGY METHOD 10/19/2024 11:11 AM EDT [facility] Hemoglobin 14.5 13.5 - 17.5 g/dL LAB HEMETOLOGY METHOD 10/19/2024 11:11 AM [facility] Hematocrit 44.9 42.0 - 54.0 % LAB HEMETOLOGY METHOD 10/19/2024 11:11 AM [facility] MCV 94.5 79.0 - 98.0 FL LAB HEMETOLOGY METHOD 10/19/2024 11:11 AM [facility] MCH 30.5 27.0 - 32.0 pcg LAB HEMETOLOGY METHOD 10/19/2024 11:11 AM [facility] MCHC 32.3 32.0 - 37.0 g/dL LAB HEMETOLOGY METHOD 10/19/2024 11:11 AM [facility] RDW 13.4 11.0 - 15.0 % LAB HEMETOLOGY METHOD 10/19/2024 11:11 AM [facility] Platelets 237 130 - 400 K/mcL LAB HEMETOLOGY METHOD 10/19/2024 11:11 AM [facility] MPV 11.7(H) 7.0 - 11.0 FL LAB HEMETOLOGY METHOD 10/19/2024 11:11 AM [facility] NRBC 0.0 <1.0 % LAB HEMETOLOGY METHOD 10/19/2024 11:11 AM [facility] NRBC Absolute 0.00 <0.10 K/mcL LAB HEMETOLOGY METHOD 10/19/2024 11:11 AM [facility] Neutrophils Relative 58.9 % LAB HEMETOLOGY METHOD 10/19/2024 11:11 AM [facility] Lymphocytes Relative 25.9 % LAB HEMETOLOGY METHOD 10/19/2024 11:11 AM [facility] Monocytes Relative 12.2 % LAB HEMETOLOGY METHOD 10/19/2024 11:11 AM [facility] Eosinophils Relative 1.7 % LAB HEMETOLOGY METHOD 10/19/2024 11:11 AM EDT [facility] Basophils Relative 1.0 % LAB HEMETOLOGY METHOD 10/19/2024 11:11 AM EDT [facility] Immature Granulocytes Relative 0.3 % LAB HEMETOLOGY METHOD 10/19/2024 11:11 AM EDT [facility] Neutrophils Absolute 4.09 1.50 - 7.00 K/mcL LAB HEMETOLOGY METHOD 10/19/2024 11:11 AM EDT [facility] Lymphocytes Absolute 1.80 1.00 - 5.00 K/mcL LAB [facility]OLOGY [facility] Monocytes Absolute 0.85 0.20 - 1.00 K/mcL LAB HEMETOLOGY METHOD 10/19/2024 11:11 AM EDT [facility] Eosinophils Absolute 0.12 0.00 - 0.50 K/mcL LAB HEMETOLOGY METHOD 10/19/2024 11:11 AM EDT [facility] Basophils Absolute 0.07 0.00 - 0.20 K/mcL LAB HEMETOLOGY METHOD 10/19[facility]2024 [facility] Immature Granulocytes Absolute 0.02 0.00 - 0.03 K/mcL LAB HEMETOLOGY METHOD 10/19/2024 11:11 AM EDT [facility] Blood Venous blood specimen / Unknown Venipuncture / Unknown 10/19/2024 7:53 AM EDT 10/19/2024 7:53 AM EDT us Lema Frias [employer] LAB BLOOD ORDERABLES Final Resul t [facility] [address] [place] [address], * Alanine aminotransferase (10/19/2024 7:53 AM EDT) ALT (SGPT) 25 10 - 60 unit/L LAB CHEMISTRY METHOD 10/19/2024 11:45 AM EDT [facility] Blood Venous blood specimen / Unknown Venipuncture / Unknown 10/19/2024 7:53 AM EDT 10/19/2024 7:53 AM EDT us Lema Frias [employer] LAB BLOOD ORDERABLES Final Resul t Performing Organization Address City/[facility] Co de Phone Number [facility] [address] [place] [address], [place] [phone] * Aspartate aminotransferase (10/19/2024 7:53 AM EDT) [facility] AST (SGOT) 18 10 - 42 unit/L LAB CHEMISTRY METHOD 10/19/2024 11:54 AM EDT [facility] Blood Venous blood specimen / Unknown Venipuncture / Unknown 10/19/2024 7:53 AM EDT 10/19/2024 7:53 AM EDT us Lema Frias [employer] LAB BLOOD ORDERABLES Final Resul t Performing Organization Address [facility] de Phone Number [facility] [address] [place] [address], [place] [phone] * Thyroid stimulating hormone (10/19/2024 7:53 AM EDT) Pathologist [facility] TSH 2.14 0.40 - 4.00 mcIU/mL LAB CHEMISTRY METHOD 10/19/2024 12:30 PM EDT [facility] Blood Venous blood specimen / Unknown Venipuncture / Unknown 10/19/2024 7:53 AM EDT 10/19/2024 7:53 AM EDT us Lema Frias [employer] LAB BLOOD ORDERABLES Final Resul t Performing Organization Address City/[facility]/ZIP Co de Phone Number [facility] [address] [place] [address], [place] [phone] * Hemoglobin A1c (10/19/2024 7:53 AM EDT) [facility] Hemoglobin A1C 5.6 <6.5 % LAB CHEMISTRY METHOD 10/19/2024 9:30 PM EDT [facility] Mean Bld Glu Estim. 114 mg/dL LAB CHEMISTRY METHOD 10/19/2024 9:30 PM EDT [facility] Blood Venous blood specimen / Unknown Venipuncture / Unknown 10/19/2024 7:53 AM EDT 10/19/2024 7:53 AM EDT us Lema [facility] LAB BLOOD ORDERABLES Final Resul t Performing Organization Address [facility] Co de Phone Number [facility] [address] [place] [address], [place] [phone] * Creatine kinase (10/19/2024 7:53 AM EDT) [facility] Total CK 99 22 - 269 unit/L LAB CHEMISTRY METHOD 10/19/2024 11:53 AM EDT [facility] Blood Venous blood specimen / Unknown Venipuncture / Unknown 10/19/2024 7:53 AM EDT 10/19/2024 7:53 AM EDT us Pita Frias LAB BLOOD ORDERABLES Final Resul t [facility] [address] [place] [address], [place] [phone] * Basic metabolic panel (10/19/2024 7:53 AM EDT) [facility] Sodium 138 133 - 145 mmol/L LAB CHEMISTRY METHOD 10/19/2024 11:53 AM EDT [facility] Potassium 4.4 3.5 - 5.5 mmol/L LAB CHEMISTRY METHOD 10/19/2024 11:53 AM [facility] Chloride 108 96 - 110 mmol/L LAB CHEMISTRY METHOD 10/19/2024 11:53 AM [facility] CO2 23 21 - 32 mmol/L LAB CHEMISTRY METHOD 10/19/2024 11:53 AM [facility] Anion Gap 7 3 - 11 LAB CHEMISTRY METHOD 10/19/2024 11:53 AM [facility] Glucose 85 70 - 100 mg/dL LAB CHEMISTRY METHOD 10/19/2024 11:53 AM [facility] BUN 16 5 - 25 mg/dL LAB CHEMISTRY METHOD 10/19/2024 11:53 AM [facility] Creatinine 1.08 0.70 - 1.30 mg/dL LAB CHEMISTRY METHOD 10/19/2024 11:53 AM [facility] eGFR 72 >=60 mL/min/1. 73m2 LAB CHEMISTRY METHOD 10/19/2024 11:53 AM [facility] Comment:Calculation based on the Chronic Kidney Disease Epidemiology Collaboration (CKD-EPI) equation refit without adjustment for race. BUN/Creatinine Ratio 14.8 LAB CHEMISTRY METHOD 10/19/2024 11:53 AM [facility] Calcium 9.2 8.5 - 10.5 mg/dL LAB CHEMISTRY METHOD 10/19/2024 11:53 AM [facility] Blood Venous blood specimen / Unknown Venipuncture / Unknown 10/19/2024 7:53 AM EDT 10/19/2024 7:53 AM EDT us Lema Frias [employer] LAB BLOOD ORDERABLES Final Resul t [facility] [address] [place] [address], [place] [phone] from Last 3 Months Insurance MEDICARE [facility] Advance Directives Documents on File Type Date Recorded Patient Health Center Assistant Expl anation Health Care Decision (hx) 04/04/2014 AD OLIVIA DIRECTIVE Health Care Decision (hx) 12/18/2011 AD OLIVIA DIRECTIVE Care Teams Fund Director Relationship Specialty Start Date End Date Jorge Garrison DO [address] [place] [phone] PCP - General Internal Medicine 05/05/24
--- OUTSIDE RECORDS SUMMARY | 2024-12-06 12:54 | XMS_ITS | Patient Health Record ---
Author Organization Nabeel Smith MD [facility] Address [address] [id number] Support Name Relationship Address Phone Arnold Sanchez Guarantor Unknown [phone] Allergies No Known Allergies Reason For Referral No Information Medications Medication SIG (Take, Route, Frequency, Duration) Notes Start Date End Date Status Gemfibrozil 600 MG 1 tablet 30 minutes before morning and evening meals Orally Twice a day; Duration: 30 day(s) Active Aspir-81 Active Tamsulosin HCl 0.4 MG 1 capsule Orally O nce a day; Duration: 30 day(s) Active Topiramate 25 MG 1 tablet Orally Twic e a day Active Vitamin D2 10 MCG (400 UNIT) 2 tablets Orally Once a day; Duration: 30 day(s) Active Social History Tobacco Use: Social History Observation Description Date Details (start date - stop date) Never Smoker NA - NA Tobacco Use/Smoking Question Answer Notes Are you a nonsmoker Alcohol Screen Question Answer Notes Did you have a drink contain ing alcohol in the past year? Yes How often did you have a dri nk containing alcohol in the past year? 2 to 4 times a month (2 points) How many drinks did you have on a typical day when you were drinking in the past year? 1 or 2 drinks (0 point) How often did you have 6 or more drinks on one occasion in the past year? Never (0 point) Points 2 Interpretation Negative Tobacco use other than smoking: Question Answer Notes Are you an other tobacco user? No Depression Question Answer Notes Little interest or pleasure in doing things No Feeling down, depressed, or hopeless No Total Score 0 Problems Problem Type SNOMED Code ICD Code Onset Dates Problem Status W/U Status Risk Notes Problem Hearing loss (63922180) Bilateral hearing loss, unspecified hearing loss type (H91.93) Active confirmed Problem Dysfunction of bilateral vestibular systems (disorder) (229828354580158 3) Vestibular dysfunction of both ears (H83.2X3) Active confirmed Plan Of Treatment No Information Insurance Providers Payer Name Payer Address Payer Phone Subscriber Number Group Number Insured Name Patient Relationship to Insured Coverage Start Date Coverage End Date MEDICARE [employer] [address] [place] [id number] Arnold Sanchez Self - patient is the insured [facility] [address] [place] [address] [id number] Arnold Sanchez Self - patient is the insured Medical (General) History Medical History History ICD Code vitamin D deficiency enlarged prostate HPL spinal DJD fine after back surgeries exe pt for limited mobility generalized arthritis of large joints Surgical History Surgery Date(Month/Year) back surgery (x6) [id number] hand fusion 02/2018 right total knee replacement rotator cuff repair, right hip replacement 09/2009
--- OUTSIDE RECORDS SUMMARY | 2024-12-06 12:54 | XMS_ITS | Encounter Summary ---
Author Organization [facility] Address [address] [facility] [address] [place] [address] Phone Care Team Providers Care Chair Inspector Name Role Phone Vianney Lemon NP Primary Care Provider [phone] Reason for Referral * Outpatient Procedure - Closed Specialty Diagnoses / Procedures Referred By Contac t Referred To Contact Diagnoses Cerebrovascular accident (CVA), unspecified mechanism Procedures Adult Echo TTE Garrick Umanzor MD Phone: tel: fax: [email or web address] Referral ID Status Reason Start Date Expiration Date Visits Re quested Visits Authorized [id number] Closed 08/08/2019 08/07/2020 1 1 Encounter Details Date Type Department Care Team (Latest Contact Info) Description 08/08/2019 Transcribe Orders Virtual Department [address] [place] [address] Garrick Umanzor MD [address] [place] [address], [address] [place] [address] [email or web address] Cerebrovascular accident (CVA), unspecified mechanism (Primary Dx) Social History Tobacco Use Types Packs/Day Years Used Date Smoking Tobacco: Never Assessed Sex and Gender Information Value Date Recorded Sex Assigned at Not on file Legal Sex Male 10:03 PM EDT Gender Identity Not on file Sexual Orientation Not on file documented as of this encounter Plan of Treatment Upcoming Encounters Date Type Department Care Team (Late st Contact Info) Description 05/10/2025 10:00 AM EDT Office Visit [facility] Ot[facility]rology [facility] [address] [facility] [address] [place] [address] Saulo Mack MD [address] [place] [address] [email or web address] documented as of this encounter Results * TTE COMPREHENSIVE W/ LVO CONTRAST (10/06/2019 9:25 AM EDT) Body Surface Area 2.0 m2 Weight 86 kg Systolic BP 145 mmHg Diastolic BP 78 mmHg Left Atrium Dimension Anterior-Posterior 38 15 - 40 mm Aortic Valve Mean Gradient 4.00 mmHg Aortic Valve Time Velocity Integral 237.00 mm Aortic Valve Peak Velocity 130.0 cm/s Aortic Valve Peak Gradient 7.00 mmHg Aortic Sinus Diameter 34 mm Ascending Aorta Diameter 34 mm Inferior Vena Cava Diameter 19 0.0 - 21 mm Interventricular Septum Thickness 7 mm Left Ventricle Internal Diameter End Diastole 41 42 - 58 mm Left Ventricle Internal Diameter End Systole 30 25 - 40 mm Left Ventricular Outflow Tract Diameter 19.0 mm LVOT VTI REST 191.00 mm Left Ventricular Outflow Tract Velocity 1.0 m/s Left Ventricular Outflow Tract Gradient at Rest 4.00 mmHg Left Ventricular Posterior Wall Thickness 9 mm Ejection Fraction 53 50 - 75 Percent Mitral Valve A Wave Speed 87.4 cm/s Mitral Valve E Wave Speed 98.1 cm/s Raw LV EF% 46 % Left Atrial Volume 41 mL Left Atrial Volume Index 20.50 mL/m2 Right Ventricle TAPSE 24 mm Right Ventricle Pulse Doppler S Wave 17.0 cm/s Aortic Valve Sinus Index 1 17 20 - 32 mm Ascending Aorta Diameter 17 mm Aortic Sinus Index 17 mm Ascending Aorta Index 17 mm Anatomical Region Laterality Modality Heart Ultrasound Narrative 10/06/2019 11:34 AM EDT Normal LV size and function EF 55 to 60%. Normal diastolic function. No significant valvular heart disease is seen. No source of embolism identified. Left Ventricle The left ventricular cavity size and wall thickness are normal. Left ventricular systolic function is normal. There are no segmental left ventricular wall motion abnormalities noted. The estimated ejection fraction is 53% (Normal 50-75%). The left ventricular ejection fraction was measured by the single dimension method. Left ventricular diastolic function appears within normal limits for age. There is no evidence of left ventricular thrombus. Right Ventricle The right ventricular size is normal. The right ventricular systolic function is normal. Left Atrium The left atrium is normal in size. The LA volume is 41 mL. The LA volume index is 20.5 mL/m2 (normal indexed value is 16-34 mL/m2). The pulmonary venous flow profiles are normal. Right Atrium The right atrium is normal in size. The IVC measures 19 mm (normal <=21 mm). The IVC demonstrates normal collapse with inspiration which is consistent with normal RA pressure. Mitral Valve There is no evidence of mitral stenosis. There is trace mitral regurgitation detected by spectral and color Doppler. Tricuspid Valve The tricuspid valve appears normal. There is no evidence of tricuspid stenosis. There is evidence of trace tricuspid regurgitation by color and spectral Doppler. There is an insufficient tricuspid regurgitation Doppler profile to calculate a right ventricular systolic pressure. Aortic Valve The aortic valve is tricuspid. There is mild thickening of multiple aortic leaflets. There is no evidence of valvular aortic stenosis. The peak aortic valve gradient is 7 mmHg. The mean aortic gradient is 4 mmHg. There is evidence of trace aortic regurgitation by color and spectral Doppler. The visualized portions of the thoracic aorta appear normal. Pulmonic Valve Pulmonary valve was not well visualized. Pericardium There is no evidence of pericardial effusion. Interatrial Septum There is no evidence of an atrial septal defect. General Findings The study was technically difficult (4). Scanned patient supine due to left shoulder surgery. Technique(s) used in the evaluation: Color flow Doppler and Spectral Doppler. An echo contrast agent was administered IV, per ASE guidelines.The predominant rhythm during the study was sinus. Comparison Findings No prior studies for comparison. us Garrick Umanzor MD CV ECHO ORDERABLES Final Res ult documented in this encounter Visit Diagnoses Diagnosis Cerebrovascular accident (CVA), unspecified mechanism- Primary Cerebrovascular accident (CVA), unspecified mechanism documented in this encounter Care Teams Chair Inspector Relationship Specialty Start Date End Date Vianney Lemon NP [address] [place] [address] [place] [address] [email or web address] PCP - General Family Medicine 08/10/19 documented as of this encounter Additional Source Comments The information contained in this document represents components of the legal health record. It is not the complete legal health record.[facility]
--- OUTSIDE RECORDS SUMMARY | 2024-12-06 12:55 | XMS_ITS | Clinical Summary ---
Author Organization [facility] Address [address] [place] [address] Care Team Providers Care Cake Former Name Role Phone Vianney Lemon APRN Primary Care Provider [phone] Allergies No known active allergies Medications Medication Sig Dispensed Refills Start Date End Date Status aspirin 81 MG chewable tablet Chew 1 tablet (81 mg total) by mouth daily. 0 Active ergocalciferol (VITAMIN D2) capsule 08751 unitsIndications:Vi tamin D deficiency TAKE ONE CAPSULE BY MOUTH EVERY WEEK 12 capsule 3 11/17/2022 Active gemfibrozil (LOPID) 600 MG tabletIndications:H ypercholesterolemia Take 1 tablet (600 mg total) by mouth 2 (two) times a day before breakfast and dinner. 180 tablet 3 11/17/2022 Active Topiramate ER 50 MG CP24 Take 50 mg by mouth 2 (two) times a day. 180 capsule 3 11/19/2022 Active tamsulosin (FLOMAX) 0.4 MG CAPSIndications:Kash ign prostatic hyperplasia, unspecified whether lower urinary tract symptoms present Take 1 capsule (0.4 mg total) by mouth daily. 90 capsule 1 11/19/2022 Active Active Problems Problem Noted Date Diagnosed Date Hypercholesterolemia 11/17/2022 BPV (benign positional vertigo) 08/03/2018 Immunizations Name Administration Dates Next Due Influenza Quad (High Dose Fl uzone) 0.7mL >65Yrs (HD-IIV4) 11/17/2022 Pneumococcal Conjugate PCV13 11/02/2018 Pneumococcal Conjugate PCV20 11/17/2022 Family History Medical History Relation Name Comments [...] Recorded Sex Assigned at Not on file Gender Identity Not on file Sexual Orientation Not on file Job Start Date Occupation Industry Not on file Not on file Not on file Last Filed Vital Signs Vital Sign Reading Time Taken Comments Blood Pressure 124/76 11/17/2022 9:08 AM EDT Pulse 79 09/08/2022 10:05 AM EDT Temperature 36.1 C (97 F) 11/17/2022 9:08 AM EDT Respiratory Rate 18 11/02/2018 8:05 AM EDT Oxygen Saturation 95% 09/08/2022 10:05 AM EDT Inhaled Oxygen Concentration - - Weight 89.8 kg (198 lb) 11/17/2022 9:08 AM EDT Height 177.8 cm (5' 10 ) 11/17/2022 9:08 AM EDT Body Mass Index 28.41 11/17/2022 9:08 AM EDT Plan of Treatment Health Maintenance Due Date Last Done Comments Hepatitis C Screening 1950 COVID-19 Vaccine (#1) 1950 Shingrix-Zoster Vaccine (1 of 2) 1999 Preventative Health Evaluation 11/03/2019 11/02/2018 Colon Cancer Screening (Colonoscopy) 09/15/2021 09/16/2011 Depression Screening 09/09/2023 09/08/2022, 11/02/2018, 11/02/2018, Additional history exists Fall Risk Assessment 09/09/2023 09/08/2022, 11/02/2018, 11/02/2018 RSV Adult > 60+ Yrs or (1 - 1-dose 75+ series) 02/13/2024 DTap / Tdap / Td (2 - Td or Tdap) 08/14/2024 08/14/2014 Influenza Vaccine (#1) 2024 11/17/2022 Pneumococcal Vaccine Completed 11/17/2022, 11/03/19 19 Hepatitis B Vaccines Aged Out No long er eligible based on patient's age to complete this topic RSV Ped < 20 months Aged Out No longe r eligible based on patient's age to complete this topic Care Teams Cake Former Relationship Specialty Start Date End Date Vianney Lemon, INFANTRY UNIT LEADER [address] [facility] [place] [address] PCP - General Family Medicine 05/25/18
--- OUTSIDE RECORDS SUMMARY | 2024-12-06 12:55 | XMS_ITS | Patient Health Record ---
Author Organization [facility] Address [address] [place] [address] Care Team Providers Care Asbestos Brake Lining Finisher Name Role Phone Batool Martin Primary Care Provider Allergies No Known Allergies Reason For Referral No Information Medications Medication SIG (Take, Route, Frequency, Duration) Notes Start Date End Date Status Tamsulosin HCl 0.4 MG 1 capsule Orally O nce a day; Duration: 90 days Active Gemfibrozil 600 MG 1 tablet 30 minutes before morning and evening meals Orally Twice a day; Duration: 90 days Active Topiramate 50 MG 1 tablet Orally Twic e a day Active Aspirin Adult Low Dose 81 MG 1 tablet Orally Once a day Active Meclizine HCl 25 MG 1 tablet as needed O rally bid prn; Duration: 90 days Active Vitamin D (Ergocalciferol) 1.25 MG (70071 UT) 1 capsule Orally once weekly; Duration: 90 days Active Social History Tobacco Use: Social History Observation Description Date Details (start date - stop date) Former Smoker NA - NA Tobacco Use/Smoking Question Answer Notes Are you a former smoker Additional Findings: Tobacco User Light cigarett e smoker ((1-9 cigs/day) Additional Findings: Tobacco Non-User Ex-light c igarette smoker (1-9/day) Alcohol Screen (Audit-C) Question Answer Notes Did you have a drink containing alcohol in the p ast year? No Points 0 Interpretation Negative Problems Problem Type SNOMED Code ICD Code Onset Dates Problem Status W/U Status Risk Notes Problem Vitamin D deficiency (82704707) Vitamin D deficiency (E55.9) Active confirmed Problem Chronic fatigue syndrome (77452636) Chronic fatigue (R53.82) Active confirmed Problem Former smoker (5381860) Former smoker (Z87.891) Active confirmed Problem Urinary tract infectious disease (82293195) UTI (urinary tract infection) (N39.0) Active confirmed Problem Enlarged prostate (342210702) Enlarged prostate (N40.0) Active confirmed Problem Mixed hyperlipidemia (665632629) Elevated cholesterol with high triglycerides (E78.2) Active confirmed Problem 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) Active confirmed Problem Right-sided vestibular weakness (H81.8X1) Active confirmed Plan Of Treatment Future Test Test Name Order Date Microalb/Creat Ratio, Randm Ur 3 LIPID PANEL ([facility]) 09/02/2022 URINALYSIS, COMPLETE W/REFLEX TO CULTURE ([facility]) 09/02/2022 CBC W/DIFF 09/02/2022 CMP 09/02/2022 VITAMIN B12 09/02/2022 VITAMIN D 25 OH 09/02/2022 PSA SCREEN 09/02/2022 HGA1C by HPLC 09/02/2022 Insurance Providers Payer Name Payer Address Payer Phone Subscriber Number Group Number Insured Name Patient Relationship to Insured Coverage Start Date Coverage End Date MEDICARE [address] [place] [phone] [id number] Arnold Villalba Self - patient is the insured 5 [facility] [address] [place] [address] [id number] Arnold Villalba Self - patient is the insured 5 Medical (General) History Medical History History ICD Code Vitamin D deficiency E55.9 Enlarged prostate N40.0 Elevated HDL E78.89 Surgical History Surgery Date(Month/Year) 6 back surgeries [id number] hand fusion right side 02-09-2018 Right total knee & hip replacement Torn rotator cuff right 2008 and left 20 gallbladder 02-09-1991 Groin / Abd hernia repair 02-09-2001 Hospitalization History Reason Date(Month/Year) please see above
--- OUTSIDE RECORDS SUMMARY | 2024-12-06 12:55 | XMS_ITS | Clinical Summary ---
Author Organization [facility] Address [address] [facility] [address] [place] [address] Phone Care Team Providers Care Supervisor Calibration Name Role Phone Vianney Lemon NP Primary Care Provider Social History Tobacco Use Types Packs/Day Years Used Date Smoking Tobacco: Never Assessed Education Answer Date Recorded Are you interested in more education? Not on santana e 10/17/2024 Are you concerned about learning? Not on file 10/17/2024 No 10/17/2024 No 10/17/2024 Digital Access Answer Date Recorded No 10/17/2024 No 10/17/2024 Reliable internet access at home? Not on file 10/17/2024 Device with a working camera? Not on file Sex and Gender Information Value Date Recorded Sex Assigned at Not on file Legal Sex Male 10:03 PM EDT Gender Identity Not on file Sexual Orientation Not on file Plan of Treatment Upcoming Encounters Date Type Department Care Team (Late st Contact Info) Description 05/10/2025 10:00 AM EDT Office Visit [facility]rology [facility] [address] [facility] 2nd [place] [address] Saulo Mack MD [address] [place] [address] [email or web address] Health Maintenance Due Date Last Done Comments Adult Td,Tdap Booster 1950 LIPID PANEL 1949 DEPRESSION SCREENING 1961 SMOKING Hx and SMOKELESS TOBACCO SCREENING 1962 HEPATITIS C SCREENING 1967 COLOGUARD 1994 COLONOSCOPY 1994 COLORECTAL CANCER SCREENING 1994 FIT TEST 1994 FOBT 1994 SIGMOIDOSCOPY 1994 VIRTUAL COLONOSCOPY 1994 ZOSTER VACCINES (2 of 3) 02/11/2012 12/17/2011 PNEUMOCOCCAL VACCINES (50+ years) (2 of 2 - PPSV23) 11/03/2019 11/02/2018 RSV VACCINE (1 - 1-dose 75+ series) 02/13/2024 INFLUENZA VACCINE (#1) 2024 0, 11/30/2018, 11/06/2017, Additional history exists COVID-19 VACCINE (2 - 2024- season) 2024 04/14/2020 HEPATITIS A VACCINES Aged Out No long er eligible based on patient's age to complete this topic HIB VACCINES Aged Out No longer eligi ble based on patient's age to complete this topic MENINGOCOCCAL VACCINES (ACWY) Aged Out No longer eligible based on patient's age to complete this topic MENINGOCOCCAL VACCINES (B) Aged Out N o longer eligible based on patient's age to complete this topic Medical Devices Not on file Insurance [employer] SUPPLEMENT MEDICARE PART A & B [employer] SUPPLEMENT MEDICARE PART A & B [employer] SUPPLEMENT MEDICARE PART A & B [employer] MED[employer] SUPPLEMENT MEDICARE PART A & B [employer] MEDEX SUPPLEMENT MEDICARE PART A & B [employer] MEDEX SUPPLEMENT MEDICARE PART A & B [employer] MEDEX SUPPLEMENT MEDICARE PART A & B [employer] MEDEX SUPPLEMENT MEDICARE PART A & B [employer] MEDEX SUPPLEMENT MEDICARE PART A & B Care Teams Supervisor Calibration Relationship Specialty Start Date End Date Vianney Lemon NP [address] [place] [address] [place] [address] [email or web address] PCP - General Family Medicine 08/10/19 Additional Source Comments The information contained in this document represents components of the legal health record. It is not the complete legal health record.[facility]
[2024-12-06 15:22] LABS: PSA,Total (Free>4and<10) 2.34 ng/mL (0.00-4.00)
== END 2024-12-06 10:27 | disposition home or self-care (01) ==
LOC: HO.WFDLDS 10:26
PROVIDERS: Visit Provider Urology
DX: N40.0 Benign prostatic hyperplasia without lower urinary tract symptoms (principal); R97.20 Elevated prostate specific antigen [PSA]; Z12.5 Encounter for screening for malignant neoplasm of prostate
CPT/HCPCS: 36415; 84153

== ENCOUNTER 2024-12-15 08:00 | Outpatient (AMB) | payer MEDICARE, SELFPAY ==
--- OUTSIDE RECORDS SUMMARY | 2024-12-15 08:09 | XMS_ITS | Patient Health Record ---
Author Organization [facility] Address [address] [facility] [address] [place] [address] Care Team Providers Care Silica Mixer Operator Name Role Phone Batool Martin Primary Care Provider [phone] Allergies No Known Allergies Reason For Referral No Information Medications Medication SIG (Take, Route, Frequency, Duration) Notes Start Date End Date Status Vitamin D (Ergocalciferol) 1.25 MG (76899 UT) 1 capsule Orally once weekly; Duration: [...] day; Duration: 90 days *Pick strength-form from [employer] for eRX* Active Topiramate 50 MG 1 tablet Orally Twice a day Active Problems Problem Type SNOMED Code ICD Code Onset Dates Problem Status W/U Status Risk Notes Problem Vitamin D deficiency (91735938) Vitamin D deficiency (E55.9) Active confirmed Problem Chronic fatigue syndrome (53390420) Chronic fatigue (R53.82) Active confirmed Problem Former smoker (2860317) Former smoker (Z87.891) Active confirmed Problem Urinary tract infectious disease (83592267) UTI (urinary tract infection) (N39.0) Active confirmed Problem Enlarged prostate (387547861) Enlarged prostate (N40.0) Active confirmed Problem Mixed hyperlipidemia (745359524) Elevated cholesterol with high triglycerides (E78.2) Active confirmed Problem 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) Active confirmed Problem Right-sided vestibular weakness (H81.8X1) Active confirmed Plan Of Treatment No Information Insurance Providers Payer Name Payer Address Payer Phone Subscriber Number Group Number Insured Name Patient Relationship to Insured Coverage Start Date Coverage End Date MEDICARE [address] [place] [phone] [id number] Arnold Villalba Self - patient is the insured 5 Medical (General) History Medical History History ICD Code Vitamin D deficiency E55.9 Enlarged prostate N40.0 Elevated HDL E78.89 Surgical History Surgery Date(Month/Year) Groin / Abd hernia repair 02-09-2001 gallbladder 02-09-1991 Torn rotator cuff right 2008 and left Right total knee & hip replacement hand fusion right side 02-09-2018 6 back surgeries [id number] Hospitalization History Reason Date(Month/Year) please see above
--- OUTSIDE RECORDS SUMMARY | 2024-12-15 08:10 | XMS_ITS | Patient Health Record ---
Author Organization [facility] Address [address] [id number] Support Name Relationship Address Phone Arnold Sanchez Guarantor Unknown [phone] Allergies No Known Allergies Reason For Referral [...] W/U Status Risk Notes Problem Hearing loss (02975264) Bilateral hearing loss, unspecified hearing loss type (H91.93) Active confirmed Problem Dysfunction of bilateral vestibular systems (disorder) (568300190319208 3) Vestibular dysfunction of both ears (H83.2X3) Active confirmed Plan Of Treatment No Information Insurance Providers Payer Name Payer Address Payer Phone Subscriber Number Group Number Insured Name Patient Relationship to Insured Coverage Start Date Coverage End Date MEDICARE [place] PART B [address] [place] [id number] Arnold Sanchez Self - patient is the insured [facility] [address] [place] [address] [id number] Arnold Sanchez Self - patient is the insured Medical (General) History Medical History History ICD Code vitamin D deficiency enlarged prostate HPL spinal DJD fine after back surgeries exe pt for limited mobility generalized arthritis of large joints Surgical History Surgery Date(Month/Year) back surgery (x6) [phone] hand fusion 02/2018 right total knee replacement rotator cuff repair, right hip replacement 09/2009
--- OUTSIDE RECORDS SUMMARY | 2024-12-15 08:10 | XMS_ITS | Patient Health Record ---
Author Organization [facility] Address [address] [place] [address] Care Team Providers Care Nut Grader Name Role Phone Jeanette Shetty Primary Care Provider Arnold Cardozo Unavailable [phone] Reason For Referral No Information Plan Of Treatment No Information Insurance Providers Payer Name Payer Address Payer Phone Subscriber Number Group Number Insured Name Patient Relationship to Insured Coverage Start Date Coverage End Date [facility] [address] [facility] [phone] [id number] ARNOLD VILLALBA Self - patient is the insured
--- OUTSIDE RECORDS SUMMARY | 2024-12-15 08:12 | XMS_ITS | Clinical Summary ---
Author Organization [facility] Address [address] [place] [address] Care Team Providers Care Feed Mill Operator Name Role Phone Vianney Lemon APRN Primary Care Provider [phone] Allergies No known active allergies Medications Medication Sig Dispensed Refills Start Date End Date Status aspirin 81 MG chewable tablet Chew 1 tablet (81 mg total) by mouth daily. 0 Active ergocalciferol (VITAMIN D2) capsule 36552 unitsIndications:Vi tamin D deficiency TAKE ONE CAPSULE [...] age to complete this topic Care Teams Feed Mill Operator Relationship Specialty Start Date End Date Vianney Lemon, RADAR SYSTEMS ENGINEER [address] [facility] [place] [address] PCP - General Family Medicine 05/25/18
--- OUTSIDE RECORDS SUMMARY | 2024-12-15 08:12 | XMS_ITS | Clinical Summary ---
Author Organization [facility] Address [address] [facility] [address] [place] [address] Phone Care Team Providers Care Die Assembler Name Role Phone Vianney Lemon NP Primary Care Provider [phone] Social History Tobacco Use Types Packs/Day Years [...] Description 05/10/2025 10:00 AM EDT Office Visit [facility] Ot[facility]rology [facility] [address] [facility] 2nd [place] [address] Saulo Mack MD [address] [place] [id number] [email or web address] Health Maintenance Due Date Last Done Comments Adult Td,Tdap Booster 1950 LIPID PANEL 1949 DEPRESSION SCREENING 1961 SMOKING Hx and SMOKELESS TOBACCO SCREENING 1962 HEPATITIS C SCREENING 1967 COLOGUARD 1994 COLONOSCOPY 1994 COLORECTAL CANCER SCREENING 1994 FIT TEST 1994 FOBT 1994 SIGMOIDOSCOPY 1994 VIRTUAL COLONOSCOPY 1994 ZOSTER VACCINES (2 of 3) 02/11/2012 12/17/2011 PNEUMOCOCCAL VACCINES (50+ years) (2 of 2 - PCV20 or PCV21) 11/03/2019 11/02/2018 RSV VACCINE (1 - 1-dose [...] topic Medical Devices Not on file Insurance [employer] SUPPLEMENT MEDICARE PART A & B [employer] SUPPLEMENT MEDICARE PART A & B [employer] MEDEX SUPPLEMENT MEDICARE PART A & B [employer] SUPPLEMENT MEDICARE PART A & B [employer] SUPPLEMENT MEDICARE PART A & B [employer] MEDEX SUPPLEMENT MEDICARE PART A & B Member Subscriber Plan / Payer (Ef fective 2014-Present) Name:Robina Villalba Member ID:[id number] Relation to Subscriber:Self Name:Robina Villalba Subscriber ID:[id number] Payer ID:[id number] Group ID:Not on file Type:Medicare Address: [employer] [address] [place] [id number] [employer] MEDEX SUPPLEMENT MEDICARE PART A & B [employer] MEDEX SUPPLEMENT MEDICARE PART A & B [employer] MEDEX SUPPLEMENT MEDICARE PART A & B Care Teams Die Assembler Relationship Specialty Start Date End Date Vianney Lemon NP [address] [place] [address] [place] [address] [email or web address] PCP - General Family Medicine 08/10/19 Additional Source Comments The information contained in this document represents components of the legal health record. It is not the complete legal health record.[facility]
--- OUTSIDE RECORDS SUMMARY | 2024-12-15 08:12 | XMS_ITS | Clinical Summary ---
Author Organization [address] Address [address] [place] [phone] Phone Care Team Providers Care Motion Picture Equipment Machinist Name Role Phone RoroJorge solis DO Primary Care Provider Encounters Date Type Department Care Team Description 11/08/2024 1:12 PM EDT - 11/08/2024 11:59 PM EDT Hospital Encounter [facility] MRI [address] [place] [id number] Migraine, unspecified, not intractable, without status migrainosus [...] EDT Routine general medical examination at a [facility] facility Hyperlipemia Benign enlargement of prostate Encounter for screening for malignant neoplasm of prostate THYROID STIMULATING HORMONE Routine 10/19/2024 7:53 AM EDT Routine [facility] Hyperlipemia Benign enlargement of prostate CBC AND DIFFERENTIAL Routine 10/19/2024 7:53 AM EDT Routine general medical examination at a health care facility Hyperlipemia Benign enlargement of prostate BASIC METABOLIC PANEL Routine 10/19/2024 7:53 AM EDT Routine general medical [facility] Hyperlipemia Benign enlargement of prostate [...] EDT Routine general medical examination at a [facility] facility Hyperlipemia Benign enlargement of prostate from [...] Signed Date: 11/10/2024 20:43 ET Workstation ID: [id number] Transcribed By: Self Edit Transcribed Date: 11/10/2024 [...] Signed Date: 11/10/2024 20:43 ET Workstation ID: [id number] Transcribed By: Self Edit Transcribed Date: 11/10/2024 20:17 ET Jorge Garrison DO IMG MRI PROCEDURES Final Resu lt * Prostate specific antigen screen (10/19/2024 7:53 AM EDT) PSA 2.02 0.00 - 4.00 ng/mL LAB CHEMISTRY METHOD 10/19/2024 1:33 PM EDT [facility] Blood Venous blood specimen / Unknown Venipuncture / Unknown 10/19/2024 7:53 AM EDT 10/19/2024 7:53 AM EDT Narrative [facility] - 10/19/2024 1:33 PM EDT The Siemens Advia Centaur Chemiluminescent Immunoassay is used. Results obtained with different assay methods or kits cannot be used interchangeably. Results cannot be interpreted as absolute evidence of the presence or absence of malignant disease. us Lema Frias DECORATOR STORE LAB BLOOD ORDERABLES Final Resul t [facility] [address] [place] [address], * Lipid panel with reflex to direct LDL (10/19/2024 7:53 AM EDT) Cholesterol 135 0 - 200 mg/dL LAB CHEMISTRY METHOD 10/19/2024 11:53 AM EDT [facility] Triglycerides 58 0 - 150 mg/dL LAB CHEMISTRY METHOD 10/19/2024 11:53 AM EDT [facility] HDL 50 >=40 mg/dL LAB CHEMISTRY METHOD 10/19/2024 11:53 AM [facility] LDL Calculated 73 0 - 100 mg/dL LAB CHEMISTRY METHOD 10/19/2024 11:53 AM EDT [facility] Comment:Estimated LDL Calcul ated using equation: Total cholesterol - HDL cholesterol - (Triglycerides/5) VLDL Cholesterol Cash 11.6 mg/dL LAB CHEMISTRY METHOD 10/19/2024 11:53 AM EDT [facility] Non HDL Chol. (LDL+VLDL) 85 <145 mg/dL LAB CHEMISTRY METHOD 10/19/2024 11:53 AM EDT [facility] Chol/HDL Ratio 2.7 0.0 - 4.4 LAB CHEMISTRY METHOD 10/19/2024 11:53 AM EDT [facility] Blood Venous blood specimen / Unknown Venipuncture / Unknown 10/19/2024 7:53 AM EDT 10/19/2024 7:53 AM EDT us Lema Frias DECORATOR STORE LAB BLOOD ORDERABLES Final Resul t [facility] [address] [place] [address], * (ABNORMAL) CBC auto differential (10/19/2024 7:53 AM EDT) WBC 7.0 4.8 - 10.8 K/mcL LAB HEMETOLOGY METHOD 10/19/2024 11:11 AM EDT [facility] RBC 4.80 4.50 - 5.50 M/mcL LAB HEMETOLOGY METHOD 10/19/2024 11:11 AM EDT [facility] Hemoglobin 14.5 13.5 - 17.5 g/dL LAB HEMETOLOGY METHOD 10/19/2024 11:11 AM [facility] Hematocrit 44.9 42.0 - 54.0 % LAB HEMETOLOGY METHOD 10/19/2024 11:11 AM [facility] MCV 94.5 79.0 - 98.0 FL LAB HEMETOLOGY METHOD 10/19/2024 11:11 AM [facility] MCH 30.5 27.0 - 32.0 pcg LAB HEMETOLOGY METHOD 10/19/2024 11:11 AM [facility] MCHC 32.3 32.0 - 37.0 g/dL LAB HEMETOLOGY METHOD 10/19/2024 11:11 AM [facility] RDW 13.4 11.0 - 15.0 % LAB HEMETOLOGY METHOD 10/19/2024 11:11 AM [facility] Platelets 237 130 - 400 K/mcL LAB HEMETOLOGY METHOD 10/19/2024 11:11 AM [facility] MPV 11.7(H) 7.0 - 11.0 FL LAB HEMETOLOGY METHOD 10/19/2024 11:11 AM [facility] NRBC 0.0 <1.0 % LAB HEMETOLOGY METHOD 10/19/2024 11:11 AM [facility] NRBC Absolute 0.00 <0.10 K/mcL LAB HEMETOLOGY METHOD 10/19/2024 11:11 AM [facility] Neutrophils Relative 58.9 % LAB HEMETOLOGY METHOD 10/19/2024 11:11 AM [facility] Lymphocytes Relative 25.9 % LAB HEMETOLOGY METHOD 10/19/2024 11:11 AM [facility] Monocytes Relative 12.2 % LAB HEMETOLOGY METHOD 10/19/2024 11:11 AM [facility] Eosinophils Relative 1.7 % LAB HEMETOLOGY METHOD 10/19/2024 11:11 AM EDT [facility] Basophils Relative 1.0 % LAB HEMETOLOGY METHOD 10/19/2024 11:11 AM EDT [facility] Immature Granulocytes Relative 0.3 % LAB HEMETOLOGY METHOD 10/19/2024 11:11 AM EDT [facility] Neutrophils Absolute 4.09 1.50 - 7.00 K/mcL LAB HEMETOLOGY METHOD 10/19/2024 11:11 AM EDT [facility] Lymphocytes Absolute 1.80 1.00 - 5.00 K/mcL LAB HEMETOLOGY METHOD [facility]/19[facility] Monocytes Absolute 0.85 0.20 - 1.00 K/mcL LAB HEMETOLOGY METHOD 10/19/2024 11:11 AM EDT [facility] Eosinophils Absolute 0.12 0.00 - 0.50 K/mcL LAB HEMETOLOGY METHOD 10/19/2024 11:11 AM EDT [facility] Basophils Absolute 0.07 0.00 - 0.20 K/mcL LAB HEMETOLOGY METHOD 10/19[facility]2024 [facility] Immature Granulocytes Absolute 0.02 0.00 - 0.03 K/mcL LAB HEMETOLOGY METHOD 10/19/2024 11:11 AM EDT [facility] Blood Venous blood specimen / Unknown Venipuncture / Unknown 10/19/2024 7:53 AM EDT 10/19/2024 7:53 AM EDT us Lema Frias DECORATOR STORE LAB BLOOD ORDERABLES Final Resul t [facility] [address] [place] [address], * Alanine aminotransferase (10/19/2024 7:53 AM EDT) ALT (SGPT) 25 10 - 60 unit/L LAB CHEMISTRY METHOD 10/19/2024 11:45 AM EDT [facility] Blood Venous blood specimen / Unknown Venipuncture / Unknown 10/19/2024 7:53 AM EDT 10/19/2024 7:53 AM EDT us Lema Frias DECORATOR STORE LAB BLOOD ORDERABLES Final Resul t Performing Organization Address City/[facility] Co de Phone Number [facility] [address] [place] [address], [place] [phone] * Aspartate aminotransferase (10/19/2024 7:53 AM EDT) [facility] AST (SGOT) 18 10 - 42 unit/L LAB CHEMISTRY METHOD 10/19/2024 11:54 AM EDT [facility] Blood Venous blood specimen / Unknown Venipuncture / Unknown 10/19/2024 7:53 AM EDT 10/19/2024 7:53 AM EDT us Lema Frias DECORATOR STORE LAB BLOOD ORDERABLES Final Resul t Performing Organization Address [facility] de Phone Number [facility] [address] [place] [address], [place] [phone] * Thyroid stimulating hormone (10/19/2024 7:53 AM EDT) Pathologist [facility] TSH 2.14 0.40 - 4.00 mcIU/mL LAB CHEMISTRY METHOD 10/19/2024 12:30 PM EDT [facility] Blood Venous blood specimen / Unknown Venipuncture / Unknown 10/19/2024 7:53 AM EDT 10/19/2024 7:53 AM EDT us Lema Frias DECORATOR STORE LAB BLOOD ORDERABLES Final Resul t Performing Organization Address City/[facility]/ZIP Co de Phone Number [facility] [address] [place] [address], [place] [phone] * Hemoglobin A1c (10/19/2024 7:53 AM EDT) [facility] Hemoglobin A1C 5.6 <6.5 % LAB CHEMISTRY METHOD 10/19/2024 9:30 PM EDT [facility] Mean Bld Glu Estim. 114 mg/dL LAB CHEMISTRY METHOD 10/19/2024 9:30 PM EDT [facility] Blood Venous blood specimen / Unknown Venipuncture / Unknown 10/19/2024 7:53 AM EDT 10/19/2024 7:53 AM EDT us Lema [facility] LAB BLOOD ORDERABLES Final Resul t Performing Organization Address [facility] Co de Phone Number [facility] [address] [place] [address], [place] [phone] * Creatine kinase (10/19/2024 7:53 AM EDT) [facility] Total CK 99 22 - 269 unit/L LAB CHEMISTRY METHOD 10/19/2024 11:53 AM EDT [facility] Blood Venous blood specimen / Unknown Venipuncture / Unknown 10/19/2024 7:53 AM EDT 10/19/2024 7:53 AM EDT us Pita Frias LAB BLOOD ORDERABLES Final Resul t [facility] [address] [place] [address], [place] [phone] * Basic metabolic panel (10/19/2024 7:53 AM EDT) [facility] Sodium 138 133 - 145 mmol/L LAB CHEMISTRY METHOD 10/19/2024 11:53 AM EDT [facility] Potassium 4.4 3.5 - 5.5 mmol/L LAB CHEMISTRY METHOD 10/19/2024 11:53 AM [facility] Chloride 108 96 - 110 mmol/L LAB CHEMISTRY METHOD 10/19/2024 11:53 AM [facility] CO2 23 21 - 32 mmol/L LAB CHEMISTRY METHOD 10/19/2024 11:53 AM [facility] Anion Gap 7 3 - 11 LAB CHEMISTRY METHOD 10/19/2024 11:53 AM [facility] Glucose 85 70 - 100 mg/dL LAB CHEMISTRY METHOD 10/19/2024 11:53 AM [facility] BUN 16 5 - 25 mg/dL LAB CHEMISTRY METHOD 10/19/2024 11:53 AM [facility] Creatinine 1.08 0.70 - 1.30 mg/dL LAB CHEMISTRY METHOD 10/19/2024 11:53 AM [facility] eGFR 72 >=60 mL/min/1. 73m2 LAB CHEMISTRY METHOD 10/19/2024 11:53 AM [facility] Comment:Calculation based on the Chronic Kidney Disease Epidemiology Collaboration (CKD-EPI) equation refit without adjustment for race. BUN/Creatinine Ratio 14.8 LAB CHEMISTRY METHOD 10/19/2024 11:53 AM [facility] Calcium 9.2 8.5 - 10.5 mg/dL LAB CHEMISTRY METHOD 10/19/2024 11:53 AM [facility] Blood Venous blood specimen / Unknown Venipuncture / Unknown 10/19/2024 7:53 AM EDT 10/19/2024 7:53 AM EDT us Lema Frias DECORATOR STORE LAB BLOOD ORDERABLES Final Resul t [facility] [address] [place] [address], [place] [phone] from Last 3 Months Insurance MEDICARE [facility] Advance Directives Documents on File Type Date Recorded Patient Speed Operator Expl anation Health Care Decision (hx) 04/04/2014 AD OLIVIA DIRECTIVE Health Care Decision (hx) 12/18/2011 AD OLIVIA DIRECTIVE Care Teams Motion Picture Equipment Machinist Relationship Specialty Start Date End Date Jorge Garrison DO [address] [place] [phone] PCP - General Internal Medicine 05/05/24
--- OUTSIDE RECORDS SUMMARY | 2024-12-15 08:12 | XMS_ITS | Encounter Summary ---
Author Organization [facility] Address [address] [place] [phone] Phone Care Team Providers Care Board Writer Name Role Phone Vianney Lemon NP Primary Care Provider + [phone] Reason for Referral * Outpatient Procedure - Closed Specialty Diagnoses / Procedures Referred By Contac t Referred To Contact Diagnoses Cerebrovascular accident (CVA), unspecified mechanism Procedures Adult Echo TTE Garrick Umanzor MD Phone: tel: fax: [email or web address]:[email or web address] Referral ID Status Reason Start Date Expiration Date Visits Re quested Visits Authorized [id number] Closed 08/08/2019 08/07/2020 1 1 Encounter Details Date Type Department Care Team (Latest Contact Info) Description 08/08/2019 Transcribe Orders Virtual Department [address] [place] [address] Garrick Umanzor MD [address] [place] [address], [address] [place] [address] [email or web address] Cerebrovascular accident (CVA), unspecified mechanism [...] Description 05/10/2025 10:00 AM EDT Office Visit [facility] [address] [facility] [address] [place] [address] Saulo Mack MD [address] [place] [address] [email or web address] documented as of this encounter Results * [...] mechanism documented in this encounter Care Teams Board Writer Relationship Specialty Start Date End Date Vianney Lemon NP [address] [place] [address] [place] [address] [email or web address] PCP - General Family Medicine 08/10/19 documented as of this encounter Additional Source Comments The information contained in this document represents components of the legal health record. It is not the complete legal health record.[facility]
--- OUTSIDE RECORDS SUMMARY | 2024-12-15 08:13 | XMS_ITS | Patient Health Record ---
Author Organization [facility] Address [address] [place] [address] Care Team Providers Care Navy Airspace Officer Name Role Phone Batool Martin Primary Care Provider [phone] Allergies No Known Allergies Reason For Referral [...] days Active Vitamin D (Ergocalciferol) 1.25 MG (13826 UT) 1 capsule Orally once weekly; Duration: [...] Problem Status W/U Status Risk Notes Problem Information temporarily unavailable Vitamin D deficiency (E55.9) Active confirmed Problem Information temporarily unavailable Chronic fatigue (R53.82) Active confirmed Problem Information temporarily unavailable Former smoker (Z87.891) Active confirmed Problem Information temporarily unavailable UTI (urinary tract infection) (N39.0) Active confirmed Problem Information temporarily unavailable Enlarged prostate (N40.0) Active confirmed Problem Information temporarily unavailable Elevated cholesterol with high triglycerides (E78.2) Active confirmed Problem Information temporarily unavailable 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) Active confirmed Problem Information temporarily unavailable Right-sided vestibular weakness (H81.8X1) Active confirmed Plan Of Treatment Future Test Test Name Order Date Microalb/Creat Ratio, Randm Ur LIPID PANEL ([facility]) 09/02/2022 URINALYSIS, COMPLETE W/REFLEX TO CULTURE ([facility]) 09/02/2022 CBC W/DIFF 09/02/2022 CMP 09/02/2022 VITAMIN B12 09/02/2022 VITAMIN D 25 OH 09/02/2022 PSA SCREEN 09/02/2022 HGA1C by HPLC 09/02/2022 Insurance Providers Payer Name Payer Address Payer Phone Subscriber Number Group Number Insured Name Patient Relationship to Insured Coverage Start Date Coverage End Date MEDICARE [address] [place] [phone] [id number] Arnold Villalba Self - patient is the insured 5 [facility] [address] [place] [address] [phone] [id number] Arnold Villalba Self - patient is the insured 5 Medical (General) History Medical History History ICD Code Vitamin D deficiency E55.9 Enlarged prostate N40.0 Elevated HDL E78.89 Surgical History Surgery Date(Month/Year) 6 back surgeries [phone] hand fusion right side 02-09-2018 Right total knee & hip replacement Torn rotator cuff right 2008 and left 20 18 gallbladder 02-09-1991 Groin / Abd hernia repair 02-09-2001 Hospitalization History Reason Date(Month/Year) please see above
--- NOTE | 2024-12-15 08:30 | A.OFFVIS_ITS ---
Intake Visit Reasons: 1y/PSA Intake Note: Patient is present for 1y/PSA * 12/06 Total PSA: 2.34 Urology Medication:FINASTERIDE,TAMSULOSIN Antibiotic Allergy:NONE Blood Thinner:ASPIRIN PVR:44ml Glass Washer And Carrier Required: No Allergies No Known Allergies Allergy (Mild, Verified 12/15/24 08:31) N/A Medication List - Last Reconciled 12/15/24 by Leatha Elaine MD aspirin 81 mg PO DAILY finasteride (Proscar) 5 mg PO DAILY 90 days furosemide 20 mg PO DAILY gemfibrozil 600 mg PO BID topiramate XR mg PO HPI Comments Details: 12/15/2024--Arnold is a 74-year-old man who is followed for BPH PSA is here for 1 year follow-up. PSA [id number]--4.34. History of Present Illness The patient is a 74-year-old male presenting for a one-year follow-up for Benign Prostatic Hyperplasia (BPH) and elevated Prostate-Specific Antigen (PSA). He has been managing BPH with finasteride and tamsulosin. His PSA level was recorded at 2.34. He states experiences vertigo, significantly impacting his activities of daily living. I will discontinue tamsulosin as it may contribute to the dizziness. Results - PSA level: 2.34 Plan 1. Benign Prostatic Hyperplasia (Bph) - Continue finasteride therapy. - Discontinue tamsulosin due to dizziness. - Schedule follow-up in one year with repeat PSA testing. 2. Vertigo - Discontinue tamsulosin to assess impact on dizziness. 12/17/23-- Arnold is a 73-year-old gentleman who is followed for BPH and elevated PSA. Follow-up today. The patient is prescribed Proscar and tamsulosin. FU PSA----11/25/23--2.56 Urinalysis is unremarkable blood negative leukocytes negative. Gilmer states he is getting up less at night and has a stronger urinary flow. Plan continue Proscar and tamsulosin, follow-up in 1 year PSA prior. Revew of chart: 07/13/23--Arnold is a 73-year-old male who is hearing impaired. He is followed for BPH. He is on tamsulosin 0.4 mg daily. He is here in follow-up post renal and bladder ultrasound and PSA testing. I reviewed PSA testing obtained on 07/09/2023--PSA--4.94 ng/mL. 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 Bilateral kidneys unremarkable, prostate volume estimated 38 mL. Bladder prevoid 195 mL, postvoid 62 mL. Continue tamsulosin. Discussed trial of Proscar 5 mg daily. Repeat PSA in 4 months. 05/04/23--Arnold is a 73-year-old male who is here due to history of BPH. The patient is hearing impaired uses a hearing aid. His Deepa is present. He states that he sees a urologist in [place] when he is there for the wintertime. He has been on tamsulosin for some time. He denies gross hematuria. Denies prior UTI or kidney stones. Evaluation: Bladder scan PVR 55 mL. Prostate exam-mild to moderately enlarged smooth. Continue tamsulosin 0.4 mg daily Ultrasound retroperitoneum. PSA screening. Follow-up in 10 weeks [facility] Medical History Ankle swelling Hx of hyperlipidemia Migraine Hearing difficulty History of osteoarthritis Fusion of fingers of both hands Urinary retention Vertigo Surgical History Hx of colonoscopy History of hip replacement History of knee replacement Family History Father History of emphysema Mother No problems noted. Social History Alcohol intake: current Alcohol intake frequency: holidays/special occasions only Patient Tobacco Use Status: Former Tobacco user Review of Systems Const All systems reviewed & are unremarkable except as noted in HPI and below Reports no additional complaints Eyes Reports no additional complaints ENT Reports no additional complaints Card Reports no additional complaints Resp Reports no additional complaints GI Reports no additional complaints Reports as per HPI Musc Reports no additional complaints Skin/Breast Reports system reviewed and no additional complaints, except as documented Neuro Reports no additional complaints Psych Reports no additional complaints Endo Reports no additional complaints Rohit/Lymph Reports no additional complaints Aller/Immun Reports no additional complaints Office Procedures Post Void Residual Post Residual Void Post Void Residual (PVR): [id number] Void Residual by ultrasound Results AMB Urinalysis, Automated UA Leukoctes 0 Kelly/uL Last Edit by Crystal Mckeon on 12/15/24 16:04 UA Nitrite Negative Last Edit by Crystal Mckeon on 12/15/24 16:04 UA Urobilinogen 0.2 mg/dL Last Edit by Crystal Mckeon on 12/15/24 16:04 UA Protein 15 mg/dL Last Edit by Crystal Mckeon on 12/15/24 16:04 UA pH 5.5 Last Edit by Crystal Mckeon on 12/15/24 16:04 UA Blood 0 Mickey/uL Last Edit by Crystal Mckeon on 12/15/24 16:04 UA Specific Buckner 1.020 Last Edit by Crystal Mckeon on 12/15/24 16:04 UA Ketone Negative Last Edit by Crystal Mckeon on 12/15/24 16:04 UA Bilirubin 0 mg/dL Last Edit by Crystal Mckeon on 12/15/24 16:04 UA Glucose 0 mg/dL Last Edit by Jenna Mckeon on 12/15/24 16:04 Results Reviewed Results Reviewed: Laboratory Last Values Urine pH (Auto) 5.5 12/15/24 12:40 Specific Buckner (Auto) 1.020 12/15/24 12:40 Urine Protein (Auto) 15 mg/dL 12/15/24 12:40 Glucose (UA)(Auto) 0 mg/dL 12/15/24 12:40 Urine Ketones (Auto) Negative 12/15/24 12:40 Urine Blood (Auto) 0 Mickey/uL 12/15/24 12:40 Urine Nitrite (Auto) Negative 12/15/24 12:40 Urine Bilirubin (Auto) 0 mg/dL 12/15/24 12:40 Urine Urobilinogen (Auto) 0.2 mg/dL 12/15/24 12:40 Leukocyte Esterase (Auto) 0 Kelly/uL 12/15/24 12:40 Ultrasound retroperitoneum-07/09/2023-- Renal ultrasound --Bilateral kidneys unremarkable, prostate volume estimated 38 mL. Bladder prevoid 195 mL, postvoid 62 mL Date of Service: 07/09/23 US RETROPERITONEAL COMPLETE (RENAL) CLINICAL INFORMATION: Benign prostatic hyperplasia with lower urinary tract symptoms. COMPARISON: None available. TECHNIQUE: Real-time imaging of the kidneys and bladder. FINDINGS: RIGHT KIDNEY: 11.4 x 5.4 x 6.4 cm (SAG x AP x TRV). The kidney is normal in size, contour, and echogenicity. Renal cortical thickness is normal. No calculi or focal parenchymal lesions. No hydronephrosis. LEFT KIDNEY: 12.9 x 5.8 x 5.8 cm (SAG x AP x TRV). The kidney is normal in size, contour, and echogenicity. Renal cortical thickness is normal. No calculi or focal parenchymal lesions. No hydronephrosis. BLADDER: Well distended. Bilateral ureteral jets are demonstrated. Prevoid bladder volume is 195 mL. Postvoid bladder volume is 62 mL. ADDITIONAL FINDINGS: The prostate is enlarged measuring 38 mL. IMPRESSION: Enlarged prostate. Post void bladder residual 62 mL. No hydronephrosis. Assessment & Plan Assessment & Plan (1) BPH with obstruction/lower urinary tract symptoms: Code(s): N40.1 - Benign prostatic hyperplasia with lower urinary tract symptoms; N13.8 - Other obstructive and reflux uropathy Category: Medical (2) Nocturia: Code(s): R35.1 - Nocturia Category: Medical (3) BPH with elevated PSA: Code(s): N40.0 - Benign prostatic hyperplasia without lower urinary tract symptoms; R97.20 - Elevated prostate specific antigen [PSA] Category: Medical Plan Plan 1. Benign Prostatic Hyperplasia (Bph) - Continue finasteride therapy. - Discontinue tamsulosin due to dizziness. - Schedule follow-up in one year with repeat PSA testing. 2. Vertigo - Discontinue tamsulosin to assess impact on dizziness. Orders: Orders AMB Urinalysis Automated Today Z13.9 - Encounter for screening, unspecified AMB Post Void Residual by ultrasound Today N40.0 - Benign prostatic hyperplasia without lower urinary tract symptoms, R97.20 - Elevated prostate specific antigen [PSA] Medications: Refilled finasteride (Proscar) 5 mg PO DAILY 90 tabs 3RF 90 days Discontinued tamsulosin Discontinued Reason: Doctor's Order 0.4 mg PO DAILY 90 caps 3RF Patient Instructions: The patient had an opportunity to ask questions regarding treatment plan. The patient expressed understanding and agreement with the above treatment plan. The patient is aware they should contact our office by phone for worsening of their current condition or the appearance of new symptoms. Compliance is encouraged with any medications and followup testing that is ordered. It is a privilege to be allowed the opportunity to participate in the urologic care of your patient. If you have any questions or concerns regarding treatment for the above conditions please do not hesitate to contact me. The office telephone contact is [phone]. This note is constructed in part using voice recognition software. While every effort has been made to ensure accuracy telegraphic typewriter repairer errors may have been included. Yours sincerely, Leatha Elaine MD Scribe Plan - Not visible on output: Patient was informed and verbally consented to the use of an ambient scribe for clinic note documentation during this visit. Coding Level of Care Code Est Pt Level 3 (96519) Complex EM visit Add On G2211 Diagnoses BPH with obstruction/lower urinary tract symptoms N40.1; N13.8 Nocturia R35.1 BPH with elevated PSA N40.0; R97.20 CPT Codes Post Residual Void - PVR CPT Code: 01925-Alqj Void Residual by ultrasound ([id number])
== END 2024-12-15 09:06 | disposition home or self-care (01) ==
LOC: HO.HUSH 08:01
PROVIDERS: PCP Nurse Practitioner Family; Visit Provider Urology
DX: N40.1 Benign prostatic hyperplasia with lower urinary tract symptoms (principal); N13.8 Other obstructive and reflux uropathy; R35.1 Nocturia; N40.0 Benign prostatic hyperplasia without lower urinary tract symptoms; R97.20 Elevated prostate specific antigen [PSA]; Z13.9 Encounter for screening, unspecified
CPT/HCPCS: 99214

== ENCOUNTER → 2024-12-15 08:00 | Outpatient (BNVA) | payer MEDICARE, SELFPAY | PROVIDERS: PCP Nurse Practitioner Family; Visit Provider Urology | DX: R97.20 Elevated prostate specific antigen [PSA] (principal); N40.1 Benign prostatic hyperplasia with lower urinary tract symptoms; N13.8 Other obstructive and reflux uropathy; R35.1 Nocturia; Z79.82 Long term (current) use of aspirin; Z87.891 Personal history of nicotine dependence | CPT/HCPCS: 51798; 81003; 99212 ==